=== PATIENT | male | born 1955 | race Caucasian/White ===

== ENCOUNTER 2018-06-06 22:55 | Inpatient (IN) | payer BC ==
[2018-06-06] MEDS ORDERED: SODIUM CHLORIDE 0.9% 1,000 ML IV STA ×2 (23:10→23:56)
--- NOTE | 2018-06-06 23:13 | ED ---
Neuro HPI - General Chief Complaint: Neuro Symptoms/Deficit Stated Complaint: memory problems Time Seen by Provider: 06/06/18 23:08 Source: patient, RN notes reviewed, old records reviewed Mode of arrival: ambulatory Limitations: no limitations - History of Present Illness Is the patient presenting with stroke symptoms?: Yes -: days(s) (3) Initial Comments: This is a 60-year-old male the ER for evaluation. Patient presents today for evaluation of difficulty finding words. The symptoms 2-3 days. Patient states is a medical history of high blood pressure also has medical history of prediabetes. No prior history of stroke or heart disease. No prior cardiac evaluation. No travel history or sick contacts, no headaches. Patient denies any neurological complaints for his numbness tingling weakness in extremities. No slurred speech. Patient has been having some confusion. Per son patient has had episodic confusion the last 2 days causing him to bring him into the emergency room tonight. Patient currently has no complaints. Location: dysarthria History of same: No Place: home Severity: mild Quality: weak Improves With: none Worsens With: none On Anticoagulants: No Context: gradual onset Associated Symptoms: confusion Treatments Prior to Arrival: none - Related Data Home Medications: Home Medications Medication Instructions Recorded Confirmed No Known Home Medications 06/06/18 06/06/18 Allergies/Adverse Reactions: Allergies Allergy/AdvReac Type Severity Reaction Status Date / Time No Known Allergies Allergy Verified 06/06/18 23:18 Review of Systems ROS Statement: Those systems with pertinent positive or pertinent negative responses have been documented in the HPI. ROS Other: All systems not noted in ROS Statement are negative. General Exam Limitations: no limitations General appearance: alert, in no apparent distress Head exam: Present: atraumatic, normocephalic, normal inspection Eye exam: Present: normal appearance, PERRL, EOMI. Absent: scleral icterus, conjunctival injection, periorbital swelling ENT exam: Present: normal exam, mucous membranes moist Neck exam: Present: normal inspection. Absent: tenderness, meningismus, lymphadenopathy Respiratory exam: Present: normal lung sounds bilaterally. Absent: respiratory distress, wheezes, rales, rhonchi, stridor Cardiovascular Exam: Present: regular rate, normal rhythm, normal heart sounds. Absent: systolic murmur, diastolic murmur, rubs, gallop, clicks GI/Abdominal exam: Present: soft, normal bowel sounds. Absent: distended, tenderness, guarding, rebound, rigid Extremities exam: Present: normal inspection, full ROM, normal capillary refill. Absent: tenderness, pedal edema, joint swelling, calf tenderness Back exam: Present: normal inspection Neurological exam: Present: alert, oriented X3, CN II-XII intact Psychiatric exam: Present: normal affect, normal mood Skin exam: Present: warm, dry, intact, normal color. Absent: rash Stroke MDM - Lab Data Result diagrams: 06/06/18 23:21 06/06/18 23:21 Lab Results 06/06/18 06/06/18 06/06/18 Range/Units 23:21 23:21 23:21 WBC 5.1 (3.8-10.6) k/uL RBC 5.29 (4.30-5.90) m/uL Hgb 14.7 (13.0-17.5) gm/dL Hct 45.8 (39.0-53.0) % MCV 86.6 (80.0-100.0) fL MCH 27.8 (25.0-35.0) pg MCHC 32.1 (31.0-37.0) g/dL RDW 14.7 (11.5-15.5) % Plt Count 183 (150-450) k/uL Neutrophils % 71 % Lymphocytes % 18 % Monocytes % 6 % Eosinophils % 3 % Basophils % 1 % Neutrophils # 3.6 (1.3-7.7) k/uL Lymphocytes # 0.9 L (1.0-4.8) k/uL Monocytes # 0.3 (0-1.0) k/uL Eosinophils # 0.2 (0-0.7) k/uL Basophils # 0.0 (0-0.2) k/uL PT 10.0 (9.0-12.0) sec INR 0.9 (<1.2) APTT 23.2 (22.0-30.0) sec Sodium 133 L (137-145) mmol/L Potassium 4.8 (3.5-5.1) mmol/L Chloride 97 L (98-107) mmol/L Carbon Dioxide 20 L (22-30) mmol/L Anion Gap 16 mmol/L BUN 28 H (9-20) mg/dL Creatinine 1.12 (0.66-1.25) mg/dL Est GFR (CKD-EPI)AfAm 81 (>60 ml/min/1.73 sqM) Est GFR (CKD-EPI)NonAf 70 (>60 ml/min/1.73 sqM) Glucose 634 H* (74-99) mg/dL Calcium 9.9 (8.4-10.2) mg/dL Total Bilirubin 0.7 (0.2-1.3) mg/dL AST 25 (17-59) U/L ALT 24 (21-72) U/L Alkaline Phosphatase 181 H (38-126) U/L Troponin I (0.000-0.034) ng/mL Total Protein 7.1 (6.3-8.2) g/dL Albumin 4.4 (3.5-5.0) g/dL Acetone, Qual (Negative) 06/06/18 06/06/18 Range/Units 23:21 23:21 WBC (3.8-10.6) k/uL RBC (4.30-5.90) m/uL Hgb (13.0-17.5) gm/dL Hct (39.0-53.0) % MCV (80.0-100.0) fL MCH (25.0-35.0) pg MCHC (31.0-37.0) g/dL RDW (11.5-15.5) % Plt Count (150-450) k/uL Neutrophils % % Lymphocytes % % Monocytes % % Eosinophils % % Basophils % % Neutrophils # (1.3-7.7) k/uL Lymphocytes # (1.0-4.8) k/uL Monocytes # (0-1.0) k/uL Eosinophils # (0-0.7) k/uL Basophils # (0-0.2) k/uL PT (9.0-12.0) sec INR (<1.2) APTT (22.0-30.0) sec Sodium (137-145) mmol/L Potassium (3.5-5.1) mmol/L Chloride (98-107) mmol/L Carbon Dioxide (22-30) mmol/L Anion Gap mmol/L BUN (9-20) mg/dL Creatinine (0.66-1.25) mg/dL Est GFR (CKD-EPI)AfAm (>60 ml/min/1.73 sqM) Est GFR (CKD-EPI)NonAf (>60 ml/min/1.73 sqM) Glucose (74-99) mg/dL Calcium (8.4-10.2) mg/dL Total Bilirubin (0.2-1.3) mg/dL AST (17-59) U/L ALT (21-72) U/L Alkaline Phosphatase (38-126) U/L Troponin I <0.012 (0.000-0.034) ng/mL Total Protein (6.3-8.2) g/dL Albumin (3.5-5.0) g/dL Acetone, Qual Positive (Negative) - NIH Stroke Scale 1a. Level of Consciousness: (0) alert 1b. LOC Questions: (0) answers correctly 1c. LOC Commands: (0) performs tasks correctly 2. Best Gaze: (0) normal 3. Visual: (0) no visual loss 4. Facial Palsy: (0) normal symmetrical movement 5a. Motor Arm Left: (0) no drift 5b. Motor Arm Right: (0) no drift 6a. Motor Leg Left: (0) no drift 6b. Motor Leg Right: (0) no drift 7. Limb Ataxia: (0) absent 8. Sensory: (0) normal 9. Best Language: (0) no aphasia 10. Dysarthria: (0) normal 11. Extinction/Inattention: (0) no abnormality - Thrombolytic Inclusion/Exclusion Thrombolytic Exclusion Criteria: Symptom Onset > 3 Hours - Medical Decision Making 62 male the ER for evaluation. Patient has some confusion. Also has evidence of DKA new-onset diabetes. Patient be admitted for DKA protocol - Radiology Data Radiology results: report reviewed (CT brain CTA had not is negative for acute disease), image reviewed - EKG Data -: EKG Interpreted by Me (EKG shows normal sinus rhythm rate of 74, NV 28, QRS 160, QTc 457) Past Medical History Past Medical History: Hypertension Additional Past Medical History / Comment(s): past hx. colon polyps History of Any Multi-Drug Resistant Organisms: None Reported Past Surgical History: Joint Replacement, Orthopedic Surgery Additional Past Surgical History / Comment(s): left cataract removed couple weeks ago, colonoscopies, left wrist ORIF Past Anesthesia/Blood Transfusion Reactions: No Reported Reaction Past Psychological History: No Psychological Hx Reported Smoking Status: Never smoker Past Alcohol Use History: None Reported Past Drug Use History: None Reported - Past Family History Sister(s) Family Medical History: Cancer Brother(s) Family Medical History: Cancer Course Vital Signs 06/06/18 22:58 Temperature 97.7 F Pulse Rate 84 Respiratory 18 Rate Blood Pressure 205/126 O2 Sat by Pulse 99 Oximetry - Reevaluation(s) Reevaluation #1: 06/07/18 01:06 Medical record is reviewed Reevaluation #2: 06/07/18 01:06 Patient's symptoms remain the same, during conversation no confusion or altered mental status, no expressive aphasia is noted - Consultations Consultation #1: Spoke with Dr. Renner was okay for admission Disposition Clinical Impression: DKA (diabetic ketoacidoses), Diabetes mellitus, new onset Disposition: ADMITTED IP TO THIS HOSP Condition: Fair Is patient prescribed a controlled substance at d/c from ED?: No Referrals: Kt Whitfield DO [Primary Care Provider] - 1-2 days
[2018-06-06 23:34] LABS: Basophils % (A) 1 %; Eosinophils # (A) 0.2 k/uL (0-0.7); Eosinophils % (A) 3 %; HCT 45.8 % (39.0-53.0); HGB 14.7 gm/dL (13.0-17.5); Lymphocytes # (A) 0.9 k/uL (1.0-4.8); Lymphocytes % (A) 18 %; MCH 27.8 pg (25.0-35.0); MCHC 32.1 g/dL (31.0-37.0); MCV 86.6 fL (80.0-100.0); Mean Platelet Volume 8.8; Monocytes # (A) 0.3 k/uL (0-1.0); Monocytes % (A) 6 %; Neutrophils # (A) 3.6 k/uL (1.3-7.7); Neutrophils % (A) 71 %; Platelet Count 183 k/uL (150-450); RBC 5.29 m/uL (4.30-5.90); RDW 14.7 % (11.5-15.5); WBC 5.1 k/uL (3.8-10.6)
[2018-06-06 23:43] LABS: Albumin 4.4 g/dL (3.5-5.0); Calcium 9.9 mg/dL (8.4-10.2); Potassium 4.8 mmol/L (3.5-5.1); Total Bilirubin 0.7 mg/dL (0.2-1.3); Total Protein 7.1 g/dL (6.3-8.2)
[2018-06-06 23:51] LABS: INR 0.9 (<1.2); Partial Thromboplastin Time 23.2 sec (22.0-30.0)
[2018-06-06] MEDS ORDERED: INSULIN REGULAR 100 UNIT/ML VIAL IV ONE (23:56)
[2018-06-06] MEDS ORDERED: SODIUM CHLORIDE 0.9% 500 ML 500 ML IV STA (23:56)
--- NOTE | 2018-06-07 00:09 | CT ---
EXAM: CT Head Without Intravenous Contrast CLINICAL HISTORY: ITS.REASON CT Reason: Neuro Deficits TECHNIQUE: Axial computed tomography images of the head/brain without intravenous contrast. This CT exam was performed using one or more of the following dose reduction techniques: automated exposure control, adjustment of the mA and/or kV according to patient size, and/or use of iterative reconstruction technique. COMPARISON: No relevant prior studies available. FINDINGS: There is hyperdensity throughout the left basal ganglia and a prominent heterogeneous rounded hyperdensity in the left periventricular white matter. There is no edema. There is ex vacuo dilatation of the left lateral ventricle. There is no midline shift. There is no acute infarction. There is no hydrocephalus. There is no acute hemorrhage. No fluid levels in the sinuses. IMPRESSION: Atypical findings in the left basal ganglia and adjacent white matter, with no edema or mass effect, and dilatation of the ipsilateral lateral ventricle, indicating a chronic process with volume loss. 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 No acute infarction or hemorrhage. <MYCVCSECTION> Critical Value Communications 06/07/18 00:21 Verify Receipt Verified receipt with JEEVAN MENDIETA in the ER for Dr. WEST on 06/07 00:20 (-05:00)
--- NOTE | 2018-06-07 00:16 | CT ---
EXAM: CT Angiography Head Without And With Intravenous Contrast CLINICAL HISTORY: ITS.REASON CT Reason: Neuro Deficits TECHNIQUE: Axial computed tomographic angiography images of the head without and with intravenous contrast using CT angiography protocol. This CT exam was performed using one or more of the following dose reduction techniques: automated exposure control, adjustment of the mA and/or kV according to patient size, and/or use of iterative reconstruction technique. 3D reconstructed images were created and reviewed. COMPARISON: No relevant prior studies available. FINDINGS: VASCULATURE: Right internal carotid artery: No suspicious findings. Intracranial segment is patent with no significant stenosis. No aneurysm. Right anterior cerebral artery: Unremarkable. No occlusion or significant stenosis. No aneurysm. Right middle cerebral artery: Unremarkable. No occlusion or significant stenosis. No aneurysm. Right posterior cerebral artery: Unremarkable. No occlusion or significant stenosis. No aneurysm. Right vertebral artery: Unremarkable as visualized. Left internal carotid artery: No suspicious findings. Intracranial segment is patent with no significant stenosis. No aneurysm. Left anterior cerebral artery: Unremarkable. No occlusion or significant stenosis. No aneurysm. Left middle cerebral artery: Unremarkable. No occlusion or significant stenosis. No aneurysm. Left posterior cerebral artery: Unremarkable. No occlusion or significant stenosis. No aneurysm. Left vertebral artery: Unremarkable as visualized. Basilar artery: Unremarkable. No occlusion or significant stenosis. No aneurysm. HEAD: Brain: Left frontal developmental venous anomaly passes into the left periventricular lesion previously discussed. No hemorrhage. Ventricles: Unremarkable. No ventriculomegaly. Bones/joints: No acute fracture. Soft tissues: Unremarkable. Sinuses: Unremarkable as visualized. No acute sinusitis. Mastoid air cells: Unremarkable as visualized. No mastoid effusion. IMPRESSION: No acute findings. EXAM: CT Angiography Neck Without And With Intravenous Contrast CLINICAL HISTORY: ITS.REASON CT Reason: Neuro Deficits TECHNIQUE: Axial computed tomographic angiography images of the neck without and with intravenous contrast using CT angiography protocol. This CT exam was performed using one or more of the following dose reduction techniques: automated exposure control, adjustment of the mA and/or kV according to patient size, and/or use of iterative reconstruction technique. MIP reconstructed images were created and reviewed. COMPARISON: No relevant prior studies available. FINDINGS: VASCULATURE: Right common carotid artery: Unremarkable. No significant stenosis. No dissection or occlusion. Right internal carotid artery: Unremarkable. Extracranial segment is patent with no significant stenosis. No dissection or occlusion. Right external carotid artery: Unremarkable. No occlusion. Right vertebral artery: Unremarkable. No significant stenosis. No dissection or occlusion. Left common carotid artery: Unremarkable. No significant stenosis. No dissection or occlusion. Left internal carotid artery: Unremarkable. Extracranial segment is patent with no significant stenosis. No dissection or occlusion. Left external carotid artery: Unremarkable. No occlusion. Left vertebral artery: Unremarkable. No significant stenosis. No dissection or occlusion. NECK: Bones/joints: No acute fracture. No dislocation. Soft tissues: Unremarkable as visualized. No mass. CAROTID STENOSIS REFERENCE USING NASCET CRITERIA: % ICA stenosis = (1 - narrowest ICA diameter/diameter of distal cervical ICA) x 100. Mild - <50% stenosis. Moderate - 50-69% stenosis. Severe - 70-94% stenosis. Near occlusion - 95-99% stenosis. Occluded - 100% stenosis. IMPRESSION: Normal neck CTA. <MYCVCSECTION> Critical Value Communications 06/07/18 00:21 Verify Receipt Verified receipt with JEEVAN MENDIETA in the ER for Dr. WEST on 06/07 00:20 (-05:00)
--- NOTE | 2018-06-07 00:32 | XR ---
EXAM: XR Chest, 2 Views CLINICAL HISTORY: ITS.REASON XR Reason: altered mental status TECHNIQUE: Frontal and lateral views of the chest. COMPARISON: No relevant prior studies available. FINDINGS: Lungs: Unremarkable. No consolidation. Pleural space: Unremarkable. No pneumothorax. Heart: Unremarkable. No cardiomegaly. Mediastinum: Unremarkable. Bones/joints: No acute fracture. IMPRESSION: No acute findings.
[2018-06-07] MEDS ORDERED: LABETALOL SYRINGE 5 MG/ML IVP STA (00:56)
[2018-06-07] MEDS ORDERED: Potassium Replacement Protocol 1 EACH MISC MISCELLANE PRN (01:01)
[2018-06-07] MEDS ORDERED: ASPIRIN 325 MG TAB PO STA (01:01)
[2018-06-07] MEDS ORDERED: Magnesium Replacement Protocol 1 EACH MISC MISCELLANE PRN (01:01)
[2018-06-07] MEDS ORDERED: INSULIN REGULAR 100 UNIT in SODIUM CHLORIDE 0.9% 100 ML IV SCH (01:15)
[2018-06-07 01:38] LABS: Glucose,Whole Blood 405 mg/dL (75-99)
[2018-06-07] MEDS: SODIUM CHLORIDE 0.9% 1,000 ML IV SCH ×2 (01:50→06:37)
[2018-06-07 02:24] LABS: Glucose,Whole Blood 361 mg/dL (75-99)
[2018-06-07 03:14] LABS: Glucose,Whole Blood 346 mg/dL (75-99)
[2018-06-07] MEDS: D5-0.45% NACL WITH KCL 20MEQ/L 1,000 ML IV SCH ×3 (04:10→15:40)
[2018-06-07 04:15] LABS: Glucose,Whole Blood 281 mg/dL (75-99)
[2018-06-07 04:45] LABS: Anion Gap 9 mmol/L; Blood Urea Nitrogen 23 mg/dL (9-20); Carbon Dioxide 22 mmol/L (22-30); Chloride 106 mmol/L (98-107); Glucose 270 mg/dL (74-99); Potassium 3.9 mmol/L (3.5-5.1); Sodium 137 mmol/L (137-145)
[2018-06-07 05:06] LABS: Glucose,Whole Blood 270 mg/dL (75-99)
[2018-06-07 05:49] LABS: Appearance,Urine Clear (Clear); Bilirubin,Urine Negative (Negative); Blood,Urine Negative (Negative); Color,Urine Yellow; Glucose,Urine (UA) 4+ (Negative); Leukocyte Esterase,Urine Negative (Negative); Nitrite,Urine Negative (Negative); Protein,Urine Negative (Negative); Specific Gravity,Urine 1.042 (1.001-1.035); Urobilinogen,Urine <2.0 mg/dL (<2.0)
[2018-06-07 05:58] LABS: Glucose,Whole Blood 226 mg/dL (75-99)
[2018-06-07 06:21] VITALS: BMI 37.0
[2018-06-07 06:59] LABS: Ketones,Urine 2+ (Negative)
[2018-06-07 07:33] LABS: Glucose,Whole Blood 178 mg/dL (75-99)
[2018-06-07 08:13] LABS: Glucose,Whole Blood 172 mg/dL (75-99)
[2018-06-07 09:03] LABS: Glucose,Whole Blood 128 mg/dL (75-99)
[2018-06-07 10:06] LABS: Glucose,Whole Blood 134 mg/dL (75-99)
[2018-06-07 10:10] LABS: Anion Gap 6 mmol/L; Blood Urea Nitrogen 18 mg/dL (9-20); Carbon Dioxide 25 mmol/L (22-30); Chloride 109 mmol/L (98-107); Glucose 120 mg/dL (74-99); Potassium 3.8 mmol/L (3.5-5.1); Sodium 140 mmol/L (137-145)
[2018-06-07 10:59] LABS: Glucose,Whole Blood 134 mg/dL (75-99)
[2018-06-07 12:38] LABS: Glucose,Whole Blood 139 mg/dL (75-99)
[2018-06-07] MEDS ORDERED: INSULIN NPH 300 UNIT/3 ML VIAL SQ SCH (12:45)
[2018-06-07 13:08] LABS: Glucose,Whole Blood 137 mg/dL (75-99)
[2018-06-07] MEDS: ASPIRIN 81 MG PO SCH (14:28)
[2018-06-07] MEDS: LISINOPRIL-HCTZ 10-12.5 MG 1 EACH TAB PO SCH ×2 (14:28→20:24)
[2018-06-07] MEDS: ENOXAPARIN 40 MG/0.4 ML SYRINGE SQ SCH (14:28)
[2018-06-07 16:50] LABS: Glucose,Whole Blood 141 mg/dL (75-99)
--- NOTE | 2018-06-07 17:14 | HP ---
HISTORY AND PHYSICAL DATE OF ADMISSION: 06/07/2018 DATE OF SERVICE: 06/07/2018 PRESENTING COMPLAINT: Weak and tired. HISTORY OF PRESENTING COMPLAINT: This is a very pleasant 62-year-old patient of Dr. Whitfield. He really does not take any medication. He is supposed to have hypertension, not taking medications. For about 2 weeks he has been feeling increasingly weak and tired, thirsty, polyuric, dry mouth to the point he was having trouble talking. He decided to finally come into the hospital. Patient was found to have a glucose of 634, and serum acetone was positive. The patient was put on IV insulin drip and admitted to the ICU for protocol. Patient denies any neuropathy symptoms or any vision symptoms. Sugars are doing better with the insulin drip in the ICU. The patient also was for 2 days having trouble speaking on 2 occasions. He felt it was more from his dry mouth. CT angio of the neck was normal. CT scan of the brain did not report any acute infarction or hemorrhage. REVIEW OF SYSTEMS: CONSTITUTIONAL: Weak, tired. HEENT: None. RESPIRATORY: None. CARDIOVASCULAR: None. GASTROINTESTINAL: None. GENITOURINARY: Polyuria. DERMATOLOGICAL: None. HEMATOLOGICAL: None. LYMPHATICS: None. PSYCHIATRY: None. NEUROLOGICAL: Temporary findings as above. PAST MEDICAL HISTORY: 1. Hypertension; not taking medications. 2. Colon polyps. PAST SURGICAL HISTORY: 1. Left cataract removed. 2. Left wrist ORIF. SOCIAL HISTORY: Does not smoke. No alcohol. Lives with his son and [id number]. 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 PHYSICAL EXAMINATION: VITAL SIGNS ON PRESENTATION: Temperature 97.7, pulse 84, respiration 18, blood pressure 205/126, repeat 155/119, pulse ox 99% on room air. GENERAL APPEARANCE: Well built; BMI 37.1. Lying in bed, awake. EYES: Pupils equal. Conjunctivae normal. HEENT: External appearance of nose and ears normal. Oral cavity normal. NECK: JVD not raised. Mass not palpable. RESPIRATORY: Effort normal. Lungs are clear. CARDIOVASCULAR: First and second sounds normal. No edema. ABDOMEN: Soft, non-tender. Liver and spleen not palpable. LYMPHATIC: No lymph node palpable in neck or axillae. PSYCHIATRY: Alert and oriented x3. Mood and affect normal. NEUROLOGICAL: Pupils equal. Cranial nerves grossly intact. Power and sensation grossly intact. INVESTIGATIONS: White count 5.1, potassium 4.8, BUN 28, creatinine 1.12. Initial blood glucose was 634. Serum acetone was positive. EKG tracing, personally reviewed by me, shows normal sinus rhythm. CT scan of the brain and CT angio as above. ASSESSMENT: 1. New-onset acute diabetic ketoacidosis. 2. Obesity; body mass index 37.1. 3. Essential hypertension, accelerated. 4. Primary osteoarthritis. 5. Dehydration with BUN up to 28. PLAN: Patient was put on insulin drip, to which patient responded. Sugars have been coming down. This afternoon I ordered 14 units of NPH and also will start the patient on Levemir 26 units at night and 8 units before meals t.i.d. Will check a lipid panel in the morning. Patient has no focal findings for neurology, but will get an MRI of the brain with and without contrast. The patient was also put on a baby aspirin. Will start the patient also on Lipitor. For blood pressure will start the patient on Zestoretic 10/12.5 b.i.d. Care was discussed with the patient. Questions were answered. MMODL / IJN: [id number] /
[2018-06-07] MEDS: INSULIN ASPART (NovoLOG) 100 UNIT/ML VIAL SQ SCH ×3 (17:23→20:24)
--- NOTE | 2018-06-07 18:57 | MR ---
EXAMINATION TYPE: MR brain wo/w con DATE OF EXAM: 06/07/2018 COMPARISON: CT brain 06/06/2018 HISTORY: Weakness TECHNIQUE: Multiplanar, multisequence images of the brain and brainstem is performed without and with IV contras t, utilizing 14 mL intravenous Gadavist . FINDINGS: There is a 4 x 3 cm area of mixed signal involving the white matter left posterior frontal lobe. This has very low signal on the T2 images consistent with hemosiderin and old hemorrhage. There is a nodular enhancing central focus that measures 16 x 13 mm and consistent with a vascular malform ation. There is no significant mass effect. There is no midline shift. There is no adjacent white mat ter edema. There is increased signal in the white matter left insula lobe also involving the caudate nucleus on the left side and left internal capsule. This appears to enhance and consistent with large area of va scular malformation. The brain stem is intact. There is thinning of the corpus callosum. Sella turcica appears normal. The re is minimal cerebral atrophy. Calvarium is intact. There is no evidence of orbital mass. There is n ormal contrast opacification of the venous sinuses. Impression Hemosiderin in the left frontal lobe consistent with old hemorrhage. Intra-axial enhancement of the l eft frontal, insula, left caudate nucleus, left internal capsule consistent with vascular malformati on. No adjacent edema seen. No mass effect. No change compared to yesterday. No evidence of cortical infarct.
--- NOTE | 2018-06-07 19:09 | ECHOF ---
Referral Reason:Thrombus MEASUREMENTS -------- HEIGHT: 190.5 cm WEIGHT: 134.3 kg BP: 144/97 RVIDd: 3.2 cm (< 3.3) IVSd: 1.4 cm (0.6 - 1.1) LVIDd: 4.6 cm (3.9 - 5.3) LVPWd: 1.4 cm (0.6 - 1.1) IVSs: 1.5 cm LVIDs: 3.4 cm LVPWs: 1.5 cm LAESV Index (A-L): 18.12 ml/m Ao Diam: 4.1 cm (2.0 - 3.7) AV Cusp: 2.2 cm (1.5 - 2.6) LA Diam: 3.0 cm (2.7 - 3.8) MV E You: 0.56 m/s MV DecT: 381 ms MV A You: 0.76 m/s MV E/A Ratio: 0.74 RAP: 5.00 mmHg RVSP: 18.74 mmHg FINDINGS -------- Sinus rhythm. This was a technically difficult study with suboptimal views. The left ventricular size is normal. There is moderate concentric left ventricular hypertrophy. O verall left ventricular systolic function is low-normal with, an EF between 50 - 55 %. The right ventricle is normal in size and function. Normal LA size by volume 22+/-6 ml/m2. The right atrium was not well visualized. 5 ml of Lumason was utilized for enhancement of images. Aortic valve is trileaflet and is mildly thickened. There is no evidence of aortic regurgitation. There is no evidence of aortic stenosis. The mitral valve leaflets are mildly thickened. There is trace to mild mitral regurgitation. Trace tricuspid regurgitation present. Right ventricular systolic pressure is normal at < 35 mmHg. There is no evidence of pulmonary hypertension. The pulmonic valve was not well visualized. The aortic root is mildy dilated up to 3.9 cm. IVC Not well visulized. There is no pericardial effusion. CONCLUSIONS -------- 1. Sinus rhythm. 2. This was a technically difficult study with suboptimal views. 3. The left ventricular size is normal. 4. There is moderate concentric left ventricular hypertrophy. 5. Overall left ventricular systolic function is low-normal with, an EF between 50 - 55 %. 6. Normal LA size by volume 22+/-6 ml/m2. 7. The right atrium was not well visualized. 8. 5 ml of Lumason was utilized for enhancement of images. 9. Aortic valve is trileaflet and is mildly thickened. 10. The mitral valve leaflets are mildly thickened. 11. There is trace to mild mitral regurgitation. 12. Trace tricuspid regurgitation present. 13. Right ventricular systolic pressure is normal at < 35 mmHg. 14. There is no evidence of pulmonary hypertension. 15. The pulmonic valve was not well visualized. 16. The aortic root is mildy dilated up to 3.9 cm. 17. IVC Not well visulized. 18. There is no pericardial effusion. COPPER MINER: Julio Medina RDCS
[2018-06-07 19:43] LABS: Hemoglobin A1C 16.4 % (4.0-6.0)
[2018-06-07 20:24] LABS: Glucose,Whole Blood 262 mg/dL (75-99)
[2018-06-07] MEDS: INSULIN DETEMIR (LEVEMIR) 100 UNIT/ML SYR SQ SCH (20:24)
[2018-06-08] MEDS ORDERED: ASPIRIN 325 MG TAB PO SCH (01:03)
[2018-06-08 01:13] LABS: Cholesterol 317 mg/dL (<200); HDL Cholesterol 40 mg/dL (40-60); Triglycerides 495 mg/dL (<150)
[2018-06-08 06:02] LABS: Glucose,Whole Blood 188 mg/dL (75-99)
[2018-06-08] MEDS: INSULIN ASPART (NovoLOG) 100 UNIT/ML VIAL SQ SCH ×6 (07:17→17:38)
[2018-06-08] MEDS ORDERED: ATORVASTATIN 20 MG TAB PO SCH (09:00)
[2018-06-08] MEDS: ASPIRIN 81 MG PO SCH (09:24)
[2018-06-08] MEDS: LISINOPRIL-HCTZ 10-12.5 MG 1 EACH TAB PO SCH ×2 (09:26→12:22)
[2018-06-08] MEDS: ENOXAPARIN 40 MG/0.4 ML SYRINGE SQ SCH (09:27)
[2018-06-08 09:33] VITALS: RESP 17
[2018-06-08 11:49] LABS: Glucose,Whole Blood 215 mg/dL (75-99)
[2018-06-08 16:29] LABS: Glucose,Whole Blood 271 mg/dL (75-99)
[2018-06-08 18:32] VITALS: BP 134/91; PULSE 82; TEMP 97.1
[2018-06-08] MEDS: INSULIN DETEMIR (LEVEMIR) 100 UNIT/ML SYR SQ SCH (19:01)
--- NOTE | 2018-06-08 23:54 | DS ---
DISCHARGE SUMMARY DATE OF ADMISSION: June 07, 2018. DATE OF DISCHARGE: June 08, 2018. FINAL DIAGNOSES: 1. New onset acute diabetic ketoacidosis. 2. Obesity BMI 37.1. 3. Essential hypertension. 4. Gastroesophageal reflux disease. 5. Primary osteoarthritis. 6. Dehydration. HOSPITAL COURSE: This patient really does not take much medications, not feeling well for last 2 weeks, presented with diabetic ketoacidosis. The patient had some trouble speaking 2 days prior to coming in. It was felt more to be from patient being dehydrated and dry mouth. The patient did have a MRI of the brain that did not show any acute event. Also had a CT angio of including the neck there was no stenosis. Care was discussed with the patient. Questions were answered. The patient was seen by dietitian. PHYSICAL EXAMINATION: VITAL SIGNS: Temperature 97.1, pulse 72, respirations 17, blood pressure 134/91, pulse ox 94 percent on room air. LUNGS: Lungs are clear. INVESTIGATIONS: Hemoglobin A1c 16.4. DISCHARGE MEDICATIONS: 1. Aspirin 81 mg a day. 2. Lipitor 20 mg a day. 3. NovoLog 10 units subcu a.c. t.i.d. 4. Levemir 32 units subcu q.h.s. 5. Zestoretic 01/18.5 one tab p.o. b.i.d. FOLLOWUP: Follow up with Dr. Whitfield in 3 days. On exam, lungs are clear. Cardiovascular: 1st and 2nd sounds normal. Accu-Cheks the patient to keep a log. Discussed with the patient. Copy to Dr. Whitfield. MMKELLYL / IJN: [id number] /
== END 2018-06-08 19:09 | disposition home or self-care (01) | DRG 639 ==
LOC: EC 22:55 → 3SCARD 06-07 01:07 → 2SICU 06-07 04:57 → 3SCARD 06-07 22:44
PROVIDERS: ADMIT Hospitalist; ATTEND Hospitalist
DX: E11.10 Type 2 diabetes mellitus with ketoacidosis without coma (principal); I10 Essential (primary) hypertension; E86.0 Dehydration; M19.91 Primary osteoarthritis, unspecified site; K21.9 Gastro-esophageal reflux disease without esophagitis; E66.9 Obesity, unspecified; Z68.37 Body mass index [BMI] 37.0-37.9, adult; Z86.010 Personal history of colon polyps; Z98.42 Cataract extraction status, left eye; Z79.82 Long term (current) use of aspirin; Z79.4 Long term (current) use of insulin; Z79.899 Other long term (current) drug therapy
CPT/HCPCS: 36415; 70450; 70496; 70498; 70553; 71046; 80051; 80053; 80061; 81003; 82009; 82565; 82947; 83036; 84100; 84484; 84520; 85025; 85610; 85730; 87086; 93005; 93306; 94760; 96361; 96374; 99285

== ENCOUNTER → 2019-09-12 | Outpatient (CLI) | payer BC | END | disposition home or self-care (01) | LOC: LABWHC1 09:32 | PROVIDERS: ATTEND Internal Medicine Gastroenterology | DX: Z11.59 Encounter for screening for other viral diseases (principal) ==

== ENCOUNTER 2019-09-17 09:45 | Day surgery (SDC) | payer BC ==
[2019-09-15 13:19] VITALS: BMI 33.5
[~2019-09-17 09:45] MED LIST: LACTATED RINGERS 1,000 ML IV SCH
[2019-09-17 10:16] VITALS: RESP 16; TEMP 97
[2019-09-17] MEDS ORDERED: LIDOCAINE 1% (10MG/ML) FOR IV START INTRADERMA ONE (10:20)
[2019-09-17] MEDS ORDERED: PROPOFOL 10 MG/ML 20 ML VIAL IV ONE (10:55)
[2019-09-17] MEDS ORDERED: LIDOCAINE 1% INJ 10MG/ML (20 ML MDV) ONE (10:55)
--- NOTE | 2019-09-17 11:15 | P.PCN ---
Date of Procedure: 09/17/19 Procedure(s) Performed: BRIEF HISTORY: Patient is a 64-year-old [id number] scheduled for an elective colonoscopy as a part of screening for colon cancer and family history of colon cancer. His father was diagnosed with colon cancer at age 60 PROCEDURE PERFORMED: Colonoscopy. PREOPERATIVE DIAGNOSIS: Screening for colon cancer/family history of colon cancer. IV sedation per Anesthesia. PROCEDURE: After informed consent was obtained, the patient, was brought into the endoscopy unit. IV sedation was administered by Anesthesia under continuous monitoring. Digital rectal examination was normal. Initially the Olympus CF-160 flexible video colonoscope was then inserted in the rectum, gradually advanced into the cecum without any difficulty. Careful examination was performed as the scope was gradually being withdrawn. Ileocecal valve and the appendiceal orifice were visualized and appeared normal. Prep was excellent. Mucosa of the cecum, ascending colon, transverse colon, descending colon, sigmoid colon, and rectum appeared normal. The proximal rectum there was a 3 mm polyp that was removed by cold biopsy Retroflexion was performed in the rectum and no lesions were seen. The patient tolerated the procedure well. IMPRESSION: 3 mm proximal rectal polyp status post removal by cold biopsy Rest of the colon appeared normal RECOMMENDATIONS: Findings of this examination were discussed with the patient well as his family. He was advised to follow with the biopsy results. He was advised to have a repeat screening colonoscopy in 5 years because of the family history of colon cancer.
[2019-09-17 11:54] VITALS: BP 122/70; PULSE 52
== END 2019-09-17 11:58 | disposition home or self-care (01) ==
LOC: ORWHC2ENDO 09:45
PROVIDERS: ATTEND Internal Medicine Gastroenterology
DX: Z12.11 Encounter for screening for malignant neoplasm of colon (principal); K62.1 Rectal polyp; I10 Essential (primary) hypertension; E78.5 Hyperlipidemia, unspecified; E11.9 Type 2 diabetes mellitus without complications; Z79.899 Other long term (current) drug therapy; Z80.0 Family history of malignant neoplasm of digestive organs
CPT/HCPCS: 88305; 45380; J2001; J2704

== ENCOUNTER 2019-10-16 07:20 | Emergency (ER) | payer BC, OTHER ==
[2019-10-16] MEDS ORDERED: LISINOPRIL 20 MG TAB PO STA (08:02)
--- NOTE | 2019-10-16 08:03 | ED ---
General Adult HPI - General Chief complaint: Fall Stated complaint: [facility]-Fall Time Seen by Provider: 10/16/19 07:20 Source: patient, EMS, RN notes reviewed, old records reviewed Mode of arrival: EMS Limitations: no limitations - History of Present Illness Initial comments: This is a 64-year-old male who presents emergency Department complaining that he fell back and hit his head on the floor. Patient states he did not lose consciousness. Patient states he has slight headache. Patient denies any neck pain. Patient denies any numbness weakness. Patient states she was up and ambulatory after the incident. Patient denies any blood thinners. Patient denies any other injury. Patient denies any back pain or chest pain. Patient denies any abdominal pain. Patient denies any extremity pain. - Related Data Home Medications Medication Instructions Recorded Confirmed Atorvastatin [Lipitor] 10 mg PO HS 09/16/19 10/16/19 Lisinopril 20 mg PO BID 09/16/19 10/16/19 Metoprolol Succinate (ER) [Toprol 50 mg PO DAILY 09/17/19 10/16/19 XL] metFORMIN HCL [metFORMIN HCL ER 1,000 mg PO W/SUPPER 10/16/19 10/16/19 Osmotic] Allergies Allergy/AdvReac Type Severity Reaction Status Date / Time No Known Allergies Allergy Verified 10/16/19 08:04 Review of Systems ROS Statement: Those systems with pertinent positive or pertinent negative responses have been documented in the HPI. ROS Other: All systems not noted in ROS Statement are negative. Past Medical History Past Medical History: Hypertension Additional Past Medical History / Comment(s): past hx. colon polyps, L wrist ORIF, L TKA, L cararact removed History of Any Multi-Drug Resistant Organisms: None Reported Past Surgical History: Joint Replacement, Orthopedic Surgery Additional Past Surgical History / Comment(s): left cataract removed couple weeks ago, colonoscopies, left wrist ORIF Past Anesthesia/Blood Transfusion Reactions: No Reported Reaction Past Psychological History: No Psychological Hx Reported Smoking Status: Never smoker Past Alcohol Use History: None Reported Past Drug Use History: None Reported - Past Family History Father Family Medical History: Cancer Sister(s) Family Medical History: Cancer Brother(s) Family Medical History: Cancer General Exam - General Exam Comments Initial Comments: GENERAL: Patient is well-developed and well-nourished. Patient is nontoxic and well- hydrated and is in mild distress. There is an occipital hematoma. Had an abrasion on the scalp. ENT: Neck is soft and supple. No significant lymphadenopathy is noted. Oropharynx is clear. Moist mucous membranes. Neck has full range of motion without eliciting any pain. EYES: The sclera were anicteric and conjunctiva were pink and moist. Extraocular movements were intact and pupils were equal round and reactive to light. Eyelids were unremarkable. PULMONARY: Unlabored respirations. Good breath sounds bilaterally. No audible rales rhonchi or wheezing was noted. CARDIOVASCULAR: There is a regular rate and rhythm without any murmurs gallops or rubs. ABDOMEN: Soft and nontender with normal bowel sounds. SKIN: Skin is clear with no lesions or rashes and otherwise unremarkable. NEUROLOGIC: Patient is alert and oriented x3. Cranial nerves II through XII are grossly intact. Motor and sensory are also intact. Normal speech, volume and content. Symmetrical smile. MUSCULOSKELETAL: Normal extremities with adequate strength and full range of motion. LYMPHATICS: No significant lymphadenopathy is noted PSYCHIATRIC: Normal psychiatric evaluation. Limitations: no limitations Course Vital Signs 10/16/19 07:25 Temperature 98.4 F Pulse Rate 78 Respiratory 20 Rate Blood Pressure 197/121 O2 Sat by Pulse 97 Oximetry Medical Decision Making - Medical Decision Making Patient's CT of the brain and C-spine showed no acute abnormality. Patient's lip was swollen on the right upper lip. Patient stated that he thinks he bit his lip when he fell. I told the patient but doesn't subside he could be due to his lisinopril and he needed to follow up with his primary medical care doctor. Disposition Clinical Impression: Fall, Scalp hematoma Disposition: HOME SELF-CARE Condition: Good Instructions (If sedation given, give patient instructions): Fall Prevention for Older Adults (ED), Hematoma (ED), Head Injury (ED) Additional Instructions: Patient is to return for any altered mental status headache nausea or vomiting. Is patient prescribed a controlled substance at d/c from ED?: No Referrals: Kt Whitfield DO [Primary Care Provider] - 1-2 days Time of Disposition: 08:26
[2019-10-16] MEDS ORDERED: METOPROLOL SUCCINATE (ER) 50 MG TAB.ER.24H PO STA (08:06)
--- NOTE | 2019-10-16 08:20 | CT ---
EXAMINATION TYPE: CT brain rohit wo con DATE OF EXAM: 10/16/2019 COMPARISON: June 06, 2018 HISTORY: Fall from standing CT DLP: 1497.[address] of the brain was performed. The ventricles, basal cisterns and sulci overlying the cerebral convexities demonstrate mild to moder ate enlargement. 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 No acute intracranial he morrhage is identified at this time. There is no evidence for intracranial hemorrhage or sulcal effacement. There is decreased attenuatio n about the periventricular white matter and deep white matter of both cerebral hemispheres, compatib le with chronic small vessel ischemia. No mass effects are seen. If symptoms persist consider MRI. Osseous calvarium is intact. Posterior scalp hematoma noted. IMPRESSION: 1. Age related atrophic and chronic small vessel ischemic change without acute intracranial process seen at this time. CT Cervical Spine: Unenhanced CT of the cervical spine was performed with bone and soft tissue window settings submitted . Coronal and sagittal reconstruction is obtained. There is normal alignment and prevertebral soft tissues. No evidence for acute cervical fracture . Scattered degenerative disc disease and spondylosis. Biapical scarring. IMPRESSION: 1. No evidence for acute fracture or subluxation of the cervical spine.
[2019-10-16] MEDS ORDERED: ENALAPRILAT 1.25 MG/ML 1 ML VIAL IVP STA (09:14)
[2019-10-17 09:54] VITALS: BP 158/102; PULSE 67; RESP 20; TEMP 98.4
== END 2019-10-16 09:43 | disposition home or self-care (01) ==
LOC: EC 07:20
DX: S00.03XA Contusion of scalp, initial encounter (principal); I10 Essential (primary) hypertension; Z79.899 Other long term (current) drug therapy; Z98.42 Cataract extraction status, left eye; Z89.612 Acquired absence of left leg above knee; W01.198A Fall on same level from slipping, tripping and stumbling with subsequent striking against other object, initial encounter; Y93.H9 Activity, other involving exterior property and land maintenance, building and construction; Y92.213 High school as the place of occurrence of the external cause; Y99.0 Civilian activity done for income or pay
CPT/HCPCS: 70450; 72125; 96374; 99284

== ENCOUNTER 2021-02-23 13:15 | Inpatient (IN) | payer BC, MEDICARE ==
[2021-02-23] MEDS ORDERED: HEPARIN SODIUM 1,000 UN/ML (10ML VL) IV ONE (13:42)
[2021-02-23] MEDS ORDERED: HEPARIN SODIUM 1,000 UN/ML (10ML VL) IV PRN (13:42)
[2021-02-23] MEDS ORDERED: DEXAMETHASONE SOD PHOSPHATE 10 MG/ML 1 ML VIAL IV STA (13:45)
--- NOTE | 2021-02-23 13:59 | ED ---
General Adult HPI - General Chief complaint: Shortness of Breath Stated complaint: Abn CT Time Seen by Provider: 02/23/21 13:40 Source: patient Mode of arrival: wheelchair Limitations: no limitations - History of Present Illness Initial comments: Dictation was produced using [employer] dictation software. please excuse any grammatical, word or spelling errors. Chief Complaint: 65-year-old male symptomatic of coronavirus for the last [address]. History of Present Illness: 65-year-old male he has had symptoms of covered since Sunday. He saw his primary care doctor. He was tested yesterday and found that he was positive. 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 He had a CT angiogram ordered by his primary care doctor. CT angioma showed diffuse bilateral infiltrates. Radiologist report says that cannot rule out peripheral emboli. Patient denies any chest pain. He does feel like his shortness of b reath is getting worse. Other incidental finding seen on his CT shows hiatal hernia and aortic aneurysm at the root measuring 4.1 cm. Patient denies getting the vaccine. The ROS documented in this emergency department record has been reviewed and confirmed by me. Those systems with pertinent positive or negative responses have been documented in the HPI. All other systems are other negative and/or noncontributory. PHYSICAL EXAM: General Impression: Alert and oriented x3, not in acute distress HEENT: Normocephalic atraumatic, extra-ocular movements intact, pupils equal and reactive to light bilaterally, mucous membranes moist. Cardiovascular: Heart regular rate and rhythm Chest: Able to complete full sentences, no retractions, no tachypnea Abdomen: abdomen soft, non-tender, non-distended, no organomegaly Musculoskeletal: Pulses present and equal in all extremities, no peripheral e shahid Motor: no focal deficits noted Neurological: CN II-XII grossly intact, no focal motor or sensory deficits noted Skin: Intact with no visualized rashes Psych: Normal affect and mood ED course: 65-year-old male presents to the emergency department for abnormal CT. He is tested positive for coronavirus yesterday. He has been symptomatic for 5 days. Vital signs upon arrival shows findings within acceptable limits. Patient's oxygen level was 93% on room air at rest. Ambulatory pulse ox shows measurement of 88%. Laboratory evaluation obtained. CBC Brayan. Coag panel is negative. Metabolic panel is within acceptable limits. Mildly hyponatremic at 131. CRP 19.5 with a d-dimer 0.96. Patient be admitted for coronavirus. Pulmonology on consult. Case discussed with Dr. Renner who is willing to accept patients care. Dr. Renner request d-dimer and CRP levels. Pulmonology consult it. Patient given Decadron. EKG interpretation: Ventricular rate 75, sinus rhythm, UT interval 218, QRS 106, QTC 442. No UT prolongation, no QTC prolongation, no ST or T-wave changes noted. EKG compared to. June 06 2018 showing no changes. Overall, this EKG is unremarkable - Related Data Home Medications Medication Instructions Recorded Confirmed Atorvastatin [Lipitor] 10 mg PO HS 09/16/19 02/23/21 lisinopriL 20 mg PO BID 09/16/19 02/23/21 Metoprolol Succinate (ER) [Toprol 50 mg PO HS 09/17/19 02/23/21 XL] Colchicine 0.6 mg PO DAILY PRN 02/23/21 02/23/21 amLODIPine [Norvasc] 10 mg PO HS 02/23/21 02/23/21 metFORMIN HCL [Glucophage] 1,000 mg PO BID 02/23/21 02/23/21 Allergies Allergy/AdvReac Type Severity Reaction Status Date / Time No Known Allergies Allergy Verified 02/23/21 14:13 Review of Systems ROS Statement: Those systems with pertinent positive or pertinent negative responses have been documented in the HPI. ROS Other: All systems not noted in ROS Statement are negative. Past Medical History Past Medical History: Hypertension Additional Past Medical History / Comment(s): past hx. colon polyps, L wrist ORIF, L TKA, L cararact removed History of Any Multi-Drug Resistant Organisms: None Reported Past Surgical History: Joint Replacement, Orthopedic Surgery Additional Past Surgical History / Comment(s): left cataract removed couple weeks ago, colonoscopies, left wrist ORIF Past Anesthesia/Blood Transfusion Reactions: No Reported Reaction Past Psychological History: No Psychological Hx Reported Smoking Status: Never smoker Past Alcohol Use History: None Reported Past Drug Use History: None Reported - Past Family History Father Family Medical History: Cancer Sister(s) Family Medical History: Cancer Brother(s) Family Medical History: Cancer General Exam Limitations: no limitations Course Vital Signs 02/23/21 02/23/21 13:23 14:08 Temperature 98.8 F Pulse Rate 76 Respiratory 20 Rate Blood Pressure 114/75 O2 Sat by Pulse 93 L 95 Oximetry Medical Decision Making - Lab Data Result diagrams: 02/23/21 13:57 02/23/21 13:57 Lab Results 02/23/21 02/23/21 02/23/21 Range/Units 13:55 13:57 13:57 WBC 6.5 (3.8-10.6) k/uL RBC 4.55 (4.30-5.90) m/uL Hgb 12.5 L (13.0-17.5) gm/dL Hct 37.5 L (39.0-53.0) % MCV 82.3 (80.0-100.0) fL MCH 27.5 (25.0-35.0) pg MCHC 33.4 (31.0-37.0) g/dL RDW 14.6 (11.5-15.5) % Plt Count 228 (150-450) k/uL MPV 8.5 Neutrophils % 81 % Lymphocytes % 11 % Monocytes % 6 % Eosinophils % 1 % Basophils % 0 % Neutrophils # 5.3 (1.3-7.7) k/uL Lymphocytes # 0.7 L (1.0-4.8) k/uL Monocytes # 0.4 (0-1.0) k/uL Eosinophils # 0.1 (0-0.7) k/uL Basophils # 0.0 (0-0.2) k/uL PT 11.3 (9.0-12.0) sec INR 1.1 (<1.2) APTT 24.8 (22.0-30.0) sec D-Dimer (<0.60) mg/L FEU Sodium (137-145) mmol/L Potassium (3.5-5.1) mmol/L Chloride (98-107) mmol/L Carbon Dioxide (22-30) mmol/L Anion Gap mmol/L BUN (9-20) mg/dL Creatinine (0.66-1.25) mg/dL Est GFR (CKD-EPI)AfAm (>60 ml/min/1.73 sqM) Est GFR (CKD-EPI)NonAf (>60 ml/min/1.73 sqM) Glucose (74-99) mg/dL Plasma Lactic Acid Marco Antonio (0.7-2.0) mmol/L Calcium (8.4-10.2) mg/dL Magnesium (1.6-2.3) mg/dL C-Reactive Protein (<1.0) mg/dL Blood Type O Positive Blood Type Confirm Blood Type Recheck No Previous Record Bld Type Recheck Status CABO Indicated Antibody Screen NEGATIVE Spec Expiration Date 02/26/2021235402/23/21 02/23/21 02/23/21 Range/Units 13:57 13:57 14:00 WBC (3.8-10.6) k/uL RBC (4.30-5.90) m/uL Hgb (13.0-17.5) gm/dL Hct (39.0-53.0) % MCV (80.0-100.0) fL MCH (25.0-35.0) pg MCHC (31.0-37.0) g/dL RDW (11.5-15.5) % Plt Count (150-450) k/uL MPV Neutrophils % % Lymphocytes % % Monocytes % % Eosinophils % % Basophils % % Neutrophils # (1.3-7.7) k/uL Lymphocytes # (1.0-4.8) k/uL Monocytes # (0-1.0) k/uL Eosinophils # (0-0.7) k/uL Basophils # (0-0.2) k/uL PT (9.0-12.0) sec INR (<1.2) APTT (22.0-30.0) sec D-Dimer (<0.60) mg/L FEU Sodium 131 L (137-145) mmol/L Potassium 4.6 (3.5-5.1) mmol/L Chloride 102 (98-107) mmol/L Carbon Dioxide 21 L (22-30) mmol/L Anion Gap 8 mmol/L BUN 23 H (9-20) mg/dL Creatinine 1.01 (0.66-1.25) mg/dL Est GFR (CKD-EPI)AfAm >90 (>60 ml/min/1.73 sqM) Est GFR (CKD-EPI)NonAf 78 (>60 ml/min/1.73 sqM) Glucose 104 H (74-99) mg/dL Plasma Lactic Acid Marco Antonio 1.4 (0.7-2.0) mmol/L Calcium 8.9 (8.4-10.2) mg/dL Magnesium 1.6 (1.6-2.3) mg/dL C-Reactive Protein (<1.0) mg/dL Blood Type Blood Type Confirm O Positive Blood Type Recheck Bld Type Recheck Status Antibody Screen Spec Expiration Date 02/23/21 02/23/21 Range/Units 14:39 14:39 WBC (3.8-10.6) k/uL RBC (4.30-5.90) m/uL Hgb (13.0-17.5) gm/dL Hct (39.0-53.0) % MCV (80.0-100.0) fL MCH (25.0-35.0) pg MCHC (31.0-37.0) g/dL RDW (11.5-15.5) % Plt Count (150-450) k/uL MPV Neutrophils % % Lymphocytes % % Monocytes % % Eosinophils % % Basophils % % Neutrophils # (1.3-7.7) k/uL Lymphocytes # (1.0-4.8) k/uL Monocytes # (0-1.0) k/uL Eosinophils # (0-0.7) k/uL Basophils # (0-0.2) k/uL PT (9.0-12.0) sec INR (<1.2) APTT (22.0-30.0) sec D-Dimer 0.96 H (<0.60) mg/L FEU Sodium (137-145) mmol/L Potassium (3.5-5.1) mmol/L Chloride (98-107) mmol/L Carbon Dioxide (22-30) mmol/L Anion Gap mmol/L BUN (9-20) mg/dL Creatinine (0.66-1.25) mg/dL Est GFR (CKD-EPI)AfAm (>60 ml/min/1.73 sqM) Est GFR (CKD-EPI)NonAf (>60 ml/min/1.73 sqM) Glucose (74-99) mg/dL Plasma Lactic Acid Marco Antonio (0.7-2.0) mmol/L Calcium (8.4-10.2) mg/dL Magnesium (1.6-2.3) mg/dL C-Reactive Protein 19.5 H (<1.0) mg/dL Blood Type Blood Type Confirm Blood Type Recheck Bld Type Recheck Status Antibody Screen Spec Expiration Date Disposition Clinical Impression: COVID-19 Disposition: ADMITTED IP TO THIS HOSP Condition: Fair Referrals: Kt Whitfield DO [Primary Care Provider] - 1-2 days
[2021-02-23] MEDS: HEPARIN SOD,PORK IN 0.45% NACL 25,000 UNIT in 0.45% NACL 1 250ML.BAG IV SCH (14:00)
[2021-02-23 14:19] LABS: Basophils % (A) 0 %; Eosinophils # (A) 0.1 k/uL (0-0.7); Eosinophils % (A) 1 %; HCT 37.5 % (39.0-53.0); HGB 12.5 gm/dL (13.0-17.5); Lymphocytes # (A) 0.7 k/uL (1.0-4.8); Lymphocytes % (A) 11 %; MCH 27.5 pg (25.0-35.0); MCHC 33.4 g/dL (31.0-37.0); MCV 82.3 fL (80.0-100.0); Mean Platelet Volume 8.5; Monocytes # (A) 0.4 k/uL (0-1.0); Monocytes % (A) 6 %; Neutrophils # (A) 5.3 k/uL (1.3-7.7); Neutrophils % (A) 81 %; Platelet Count 228 k/uL (150-450); RBC 4.55 m/uL (4.30-5.90); RDW 14.6 % (11.5-15.5); WBC 6.5 k/uL (3.8-10.6)
[2021-02-23] MEDS ORDERED: NALOXONE 0.4 MG/ML 1 ML VIAL IV PRN (14:22)
[2021-02-23 14:35] LABS: African American GFR (CKD) >90 (>60 ml/min/1.73 sqM); Anion Gap 8 mmol/L; Blood Urea Nitrogen 23 mg/dL (9-20); Calcium 8.9 mg/dL (8.4-10.2); Carbon Dioxide 21 mmol/L (22-30); Chloride 102 mmol/L (98-107); Glucose 104 mg/dL (74-99); Magnesium 1.6 mg/dL (1.6-2.3); Non-African American GFR(CKD) 78 (>60 ml/min/1.73 sqM); Potassium 4.6 mmol/L (3.5-5.1); Sodium 131 mmol/L (137-145)
[2021-02-23 14:40] LABS: INR 1.1 (<1.2); Partial Thromboplastin Time 24.8 sec (22.0-30.0); Prothrombin Time 11.3 sec (9.0-12.0)
[2021-02-24] MEDS: SODIUM CHLORIDE 0.9% 1,000 ML IV SCH ×2 (01:31→12:37)
[2021-02-24] MEDS: HEPARIN SOD,PORK IN 0.45% NACL 25,000 UNIT in 0.45% NACL 1 250ML.BAG IV SCH ×2 (02:43→15:58)
[2021-02-24 07:09] LABS: Glucose,Whole Blood 131 mg/dL (75-99)
[2021-02-24 10:02] LABS: African American GFR (CKD) 88 (>60 ml/min/1.73 sqM); Anion Gap 11 mmol/L; Blood Urea Nitrogen 29 mg/dL (9-20); Calcium 9.3 mg/dL (8.4-10.2); Carbon Dioxide 18 mmol/L (22-30); Chloride 106 mmol/L (98-107); Glucose 212 mg/dL (74-99); Non-African American GFR(CKD) 76 (>60 ml/min/1.73 sqM); Sodium 135 mmol/L (137-145)
[2021-02-24] MEDS ORDERED: COLCHICINE 0.6 MG EACH PO PRN (10:36)
[2021-02-24] MEDS ORDERED: REMDESIVIR 200 MG in SODIUM CHLORIDE 0.9% 250 ML IVPB ONE (11:00)
[2021-02-24] MEDS: lisinopriL 20 MG TAB PO SCH ×2 (11:09→21:30)
[2021-02-24] MEDS: DEXAMETHASONE SOD PHOSPHATE 10 MG/ML 1 ML VIAL IVP SCH (11:09)
[2021-02-24] MEDS: ZINC SULFATE 220 MG CAP PO SCH (11:09)
[2021-02-24] MEDS: metFORMIN 500 MG TAB PO SCH ×2 (11:09→21:29)
[2021-02-24] MEDS: ASCORBIC ACID 500 MG TAB PO SCH ×2 (11:09→21:29)
[2021-02-24] MEDS: CHOLECALCIFEROL 25 MCG (1000 IU) TABLET PO SCH (11:09)
[2021-02-24 11:49] LABS: Glucose,Whole Blood 151 mg/dL (75-99)
[2021-02-24] MEDS ORDERED: LACTULOSE 20 GM/30 ML CUP PO PRN (12:37)
[2021-02-24] MEDS ORDERED: MAGNESIUM HYDROXIDE 2,400 MG/10 ML CUP PO PRN (12:37)
[2021-02-24] MEDS ORDERED: ACETAMINOPHEN TAB 325 MG TAB PO PRN (12:37)
[2021-02-24] MEDS ORDERED: ONDANSETRON 4 MG/2 ML VIAL IVP PRN (12:37)
[2021-02-24] MEDS ORDERED: MAG HYDROX/AL HYDROX/SIMETH 30 ML CUP PO PRN (12:37)
[2021-02-24] MEDS ORDERED: CALCIUM CARBONATE 500 MG CHEWABLE PO PRN (12:37)
--- NOTE | 2021-02-24 12:37 | CT ---
CT CHEST FOR PULMONARY EMBOLISM. EXAMINATION TYPE: CT chest angio for PE DATE OF EXAM: 02/24/2021 INDICATION: SOB, elevated d-dimer, + covid CT DLP: 1003.7 mGycm, Automated exposure control for dose reduction was used. CONTRAST: Patient injected with 100 mL of Isovue 370. COMPARISON: 02/23/2021 TECHNIQUE: CT of the chest is performed on a spiral scan at 2 mm thick sections. Study is performed with intravenous contrast timed for evaluation for pulmonary embolism. This will limit additional po rtions of the evaluation. 3-D MIP images reconstructed by the technologist are reviewed on the compu ter in the coronal and sagittal planes. FINDINGS: Contrast timing is suboptimal for pulmonary embolism. No obvious central large pulmonary emboli are e vident. The aorta tapers to its visualized course. No mediastinal or hilar adenopathy enlarged by CT criteria is evident. Previous prominent pretracheal lymph node is less apparent on the current study. Right hilar lymph node measures 1.1 cm. The ascend ing aorta diameter at the level of the main pulmonary artery is 3.4 cm. The main pulmonary artery di ameter at the bifurcation is 3.0 cm. Patchy groundglass opacities and infiltrates are present. Correlate for atypical pneumonia. Limited CT section through the upper abdomen are unremarkable. IMPRESSIONS: 1. No obvious pulmonary embolism. There is limitation with contrast timing limiting the pulmonary emb olism evaluation. 2. Diffuse scattered groundglass opacities and infiltrates similar to comparison
[2021-02-24] MEDS: INSULIN ASPART (NovoLOG) 100 UNIT/ML VIAL SQ SCH ×2 (13:06→17:49)
--- NOTE | 2021-02-24 13:45 | P.HPIM ---
History of Present Illness H&P Date: 02/24/21 Chief Complaint: Short of breath This is a pleasant 65-year-old patient of Dr. Whitfield. Chronic stable medical conditions include diabetes, hypertension, obesity, hyperlipidemia. Osteoarthritis. About 7 days ago patient started feeling tired. Increased sleepiness. Chills. This Sunday went to work and he felt to became short of breath. Sunday is guarded as ordered as COVID test and came back to be positive yesterday. The meantime patient become more short of breath. No headache. Loss of taste. No diarrhea. Tired. Pulse ox on room air in the ER was 88%. Admitted. Started on steroids. Nasal cannula. Patient did not take the vaccine for COVID 19. Computed tomography scan of the chest done yesterday as outpatient showed bilateral infiltrates. Due to suboptimal contrast could not rule out subsegmental embolism. Mild aortic aneurysm 4.1 cm. Review of systems: GEN.: Tired decreased appetite EYES: None HEENT: Loss of taste NECK: None RESPIRATORY: As above CARDIOVASCULAR: None GASTROINTESTINAL: None GENITOURINARY: None MUSCULOSKELETAL: Joint pains LYMPHATICS: None HEMATOLOGICAL: None PSYCHIATRY: None NEUROLOGICAL: None Past medical history to include: Diabetes, hypertension, colon polyps, osteoarthritis Social history: Does not smoke or drink alcohol. 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 Family history: Thyroid cancer Physical examination: VITAL SIGNS: 98.8, 76, 20, 140s/75, 88% on room air GENERAL: BMI 35, sitting up in chair, awake, slightly tired. EYES: Pupils equal. Conjunctiva normal. HEENT: External appearance of nose and ears normal, oral cavity grossly normal. NECK: JVD not raised; masses not palpable. HEART: First and second heart sounds are normal; no edema. LUNGS: Respiratory rate increased, decreased breaths on some basal crackles. ABDOMEN: Soft, nontender, liver spleen not palpable, no masses palpable. PSYCH: Alert and oriented x3; mood and affect normal. MUSCULAR skeletal: Evidence of OA NEUROLOGICAL: Cranial nerves grossly intact; no facial asymmetry, power and sensation grossly intact. LYMPHATICS: No lymph nodes palpable in the axilla and neck INVESTIGATIONS, reviewed in the clinical context: CT chest [February 24]: PE unlikely. Diffuse scattered groundglass. White count 6.5 globin 12.5 platelets 228 d-dimer 0.96 sodium 131 potassium 4.6 BUN 23 creatinine 1.01 CRP 19.5 EKG tracing personally reviewed by me-normal sinus rhythm. Rate 75 CT chest [February 23]: Bilateral infiltrates. Cannot rule out PE. Assessment and plan: -Bilateral COVID 19 pneumonitis, and vaccinated patient. Symptoms started 7 days ago. Dexamethasone 6 mg. Supplement vitamin C vitamin D zinc. Subcu Lovenox -IV heparin monitoring Follow PTT -Pulmonary embolism unlikely. No COVID-19 is thrombogenic stage. At this point is no significant findings of PE. -Diabetes mellitus type 2 on oral hypoglycemic. Continue Glucophage.. Follow Accu-Cheks -Essential hypertension Lisinopril 20 mg twice a day Norvasc 10 mg daily at bedtime. Toprol-XL 50 mg daily at bedtime -Hyperlipidemia Lipitor 10 mg daily at bedtime -Obesity BMI 35 Weight loss measures. Dexamethasone 6 mg. IV Remdesivir started by pulmonary. Should be able to stop IV heparin when okay with pulmonary. Care was discussed with the patient. Questions answered. Past Medical History Past Medical History: Diabetes Mellitus, Hypertension Additional Past Medical History / Comment(s): colon polyps History of Any Multi-Drug Resistant Organisms: None Reported Past Surgical History: Joint Replacement, Orthopedic Surgery Additional Past Surgical History / Comment(s): left cataract removed, colonoscopies, left wrist ORIF, R. Hip replacement, L TKA, colon polyps removed Past Anesthesia/Blood Transfusion Reactions: No Reported Reaction Past Psychological History: No Psychological Hx Reported Smoking Status: Never smoker Past Alcohol Use History: None Reported Past Drug Use History: None Reported - Past Family History Father Family Medical History: Cancer Additional Family Medical History / Comment(s): lung Mother Family Medical History: COPD Sister(s) Family Medical History: Cancer Additional Family Medical History / Comment(s): thyroid Brother(s) Family Medical History: Cancer Additional Family Medical History / Comment(s): one brother had jaw cancer. one brother had prostate cancer Medications and Allergies Home Medications Medication Instructions Recorded Confirmed Type Atorvastatin [Lipitor] 10 mg PO HS 09/16/19 02/23/21 History lisinopriL 20 mg PO BID 09/16/19 02/23/21 History Metoprolol Succinate (ER) [Toprol 50 mg PO HS 09/17/19 02/23/21 History XL] Colchicine 0.6 mg PO DAILY PRN 02/23/21 02/23/21 History amLODIPine [Norvasc] 10 mg PO HS 02/23/21 02/23/21 History metFORMIN HCL [Glucophage] 1,000 mg PO BID 02/23/21 02/23/21 History Allergies Allergy/AdvReac Type Severity Reaction Status Date / Time No Known Allergies Allergy Verified 02/23/21 14:13 Physical Exam Vitals: Vital Signs Temp Pulse Pulse Resp BP BP Pulse Ox 02/24/21 10:00 97.7 F 76 20 132/77 93 L 02/24/21 05:35 97.7 F 68 18 132/76 91 L 02/24/21 02:38 97.7 F 68 21 114/67 91 L 02/24/21 00:40 97.5 F L 70 18 102/61 94 L 02/24/21 00:00 77 18 105/64 95 02/23/21 20:28 68 20 95/65 95 02/23/21 18:50 75 18 126/80 95 02/23/21 16:03 73 18 123/68 94 L 02/23/21 14:08 95 02/23/21 13:40 88 L 02/23/21 13:23 98.8 F 76 20 114/75 93 L Intake and Output 02/23/21 02/24/21 02/24/21 22:59 06:59 14:59 Intake Total 182.126 132.404 0 Balance 182.126 132.404 0 Intake: Intake, IV Titration 182.126 132.404 0 Amount Heparin Sod,Pork in 0.45% 182.126 132.404 0 NaCl 25,000 unit In 0.45 % NaCl 1 250ml.bag @ 18 UNITS/KG/HR 22.861 mls/hr IV .[id number] [facility] Rx#: [id number] Other: Voiding Method Toilet # Voids 1 Weight 127.006 kg Results CBC & Chem 7: 02/23/21 13:57 02/24/21 09:15 Labs: Abnormal Lab Results - Last 24 Hours (Table) 02/23/21 02/23/21 02/23/21 Range/Units 13:57 13:57 14:39 Hgb 12.5 L (13.0-17.5) gm/dL Hct 37.5 L (39.0-53.0) % Lymphocytes # 0.7 L (1.0-4.8) k/uL APTT (22.0-30.0) sec D-Dimer 0.96 H (<0.60) mg/L FEU Sodium 131 L (137-145) mmol/L Carbon Dioxide 21 L (22-30) mmol/L BUN 23 H (9-20) mg/dL Glucose 104 H (74-99) mg/dL POC Glucose (mg/dL) (75-99) mg/dL C-Reactive Protein (<1.0) mg/dL 02/23/21 02/23/21 02/24/21 Range/Units 14:39 21:13 05:23 Hgb (13.0-17.5) gm/dL Hct (39.0-53.0) % Lymphocytes # (1.0-4.8) k/uL APTT 135.9 H* 93.3 H (22.0-30.0) sec D-Dimer (<0.60) mg/L FEU Sodium (137-145) mmol/L Carbon Dioxide (22-30) mmol/L BUN (9-20) mg/dL Glucose (74-99) mg/dL POC Glucose (mg/dL) (75-99) mg/dL C-Reactive Protein 19.5 H (<1.0) mg/dL 02/24/21 02/24/21 Range/Units 07:08 09:15 Hgb (13.0-17.5) gm/dL Hct (39.0-53.0) % Lymphocytes # (1.0-4.8) k/uL APTT (22.0-30.0) sec D-Dimer (<0.60) mg/L FEU Sodium 135 L (137-145) mmol/L Carbon Dioxide 18 L (22-30) mmol/L BUN 29 H (9-20) mg/dL Glucose 212 H (74-99) mg/dL POC Glucose (mg/dL) 131 H (75-99) mg/dL C-Reactive Protein (<1.0) mg/dL Thrombosis Risk Factor Assmnt - Choose All That Apply Each Factor Represents 1 point: Obesity (BMI >25), Serious lung disease incl. pneumonia (< 1month) Each Risk Factor Represents 2 Points: Age 61-74 years Thrombosis Risk Factor Assessment Total Risk Factor Score: 4 Thrombosis Risk Factor Assessment Level: Moderate Risk
--- NOTE | 2021-02-24 14:56 | XR ---
EXAMINATION TYPE: XR chest 1V DATE OF EXAM: 02/24/2021 COMPARISON: 06/07/2018 HISTORY: Shortness of breath TECHNIQUE: Single frontal view of the chest is obtained. FINDINGS: Bilateral patchy infiltrates. Heart is enlarged. Curvature of the spine. Underlying COPD n oted. IMPRESSION: Bilateral patchy areas of infiltrate.
--- NOTE | 2021-02-24 16:25 | P.CNPUL ---
History of Present Illness Consult date: 02/24/21 Requesting physician: Shai Renner Reason for consult: dyspnea, hypoxemia, pneumonia, abnormal CXR/CT, other Chief complaint: Shortness of breath, chills, weakness History of present illness: 65-year-old white male patient of Dr. Whitfield with past medical history of hypertension, diabetes mellitus type 2, hyperlipidemia, lifetime nonsmoker, no EtOH use, who presented to the emergency department on 02/23/2021 for evaluation of shortness of breath. Patient began with symptoms of fatigue, sleeping a lot, chills that started last Sunday and over the weekend she also developed shortness of breath, on Sunday patient was tested for COVID-19 at his PCPs office, and on Sunday he was notified of a positive test. Patient is not vaccinated against COVID-19. 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 CT angiogram was ordered by his primary care doctor's which showed diffuse bilateral infiltrates, however peripheral emboli could not be ruled out per radiologist report. Patient denies any chest pain, he is afebrile, his breathing is non-labored, he does have a cough, which is nonproductive, he is currently activities of oxygen pulse ox is 93%, he was started on heparin infusion for possibility of pulmonary emboli. Started on Decadron in the emergency department, his admission blood work shows white blood cell count 7.5, hemoglobin of 12.5, lymphocyte count is 0.7, d-dimer 0.96, sodium is 131, potassium is 4.6, CO2 is 21, BUN is 23, creatinine is 1.01, CRP is 19.5, lactic acid is 1.4. CTA chest has been repeated showing no obvious pulmonary embolism, there is limitation with contrast timing limiting the pulmonary evaluation, and diffuse scattered groundglass opacities and infiltrates similar to comparison, follow-up d-dimer is negative today as 0.56. Review of Systems All systems: negative Constitutional: Reports fatigue, Reports fever, Reports weakness, Denies chills Eyes: denies blurred vision, denies pain Ears, nose, mouth and throat: Denies headache, Denies sore throat Cardiovascular: Denies chest pain, Denies shortness of breath Respiratory: Reports cough Gastrointestinal: Denies abdominal pain, Denies diarrhea, Denies nausea, Denies vomiting Musculoskeletal: Denies myalgias Integumentary: Denies pruritus, Denies rash Neurological: Denies numbness, Denies weakness Psychiatric: Denies anxiety, Denies depression Endocrine: Denies fatigue, Denies weight change Past Medical History Past Medical History: Diabetes Mellitus, Hypertension Additional Past Medical History / Comment(s): colon polyps History of Any Multi-Drug Resistant Organisms: None Reported Past Surgical History: Joint Replacement, Orthopedic Surgery Additional Past Surgical History / Comment(s): left cataract removed, colonoscopies, left wrist ORIF, R. Hip replacement, L TKA, colon polyps removed Past Anesthesia/Blood Transfusion Reactions: No Reported Reaction Past Psychological History: No Psychological Hx Reported Smoking Status: Never smoker Past Alcohol Use History: None Reported Past Drug Use History: None Reported - Past Family History Father Family Medical History: Cancer Additional Family Medical History / Comment(s): lung Mother Family Medical History: COPD Sister(s) Family Medical History: Cancer Additional Family Medical History / Comment(s): thyroid Brother(s) Family Medical History: Cancer Additional Family Medical History / Comment(s): one brother had jaw cancer. one brother had prostate cancer Medications and Allergies Home Medications Medication Instructions Recorded Confirmed Type Atorvastatin [Lipitor] 10 mg PO HS 09/16/19 02/23/21 History lisinopriL 20 mg PO BID 09/16/19 02/23/21 History Metoprolol Succinate (ER) [Toprol 50 mg PO HS 09/17/19 02/23/21 History XL] Colchicine 0.6 mg PO DAILY PRN 02/23/21 02/23/21 History amLODIPine [Norvasc] 10 mg PO HS 02/23/21 02/23/21 History metFORMIN HCL [Glucophage] 1,000 mg PO BID 02/23/21 02/23/21 History Allergies Allergy/AdvReac Type Severity Reaction Status Date / Time No Known Allergies Allergy Verified 02/23/21 14:13 Physical Exam Vitals: Vital Signs Temp Pulse Pulse Resp BP BP Pulse Ox 02/24/21 10:00 97.7 F 76 20 132/77 93 L 02/24/21 05:35 97.7 F 68 18 132/76 91 L 02/24/21 02:38 97.7 F 68 21 114/67 91 L 02/24/21 00:40 97.5 F L 70 18 102/61 94 L 02/24/21 00:00 77 18 105/64 95 02/23/21 20:28 68 20 95/65 95 02/23/21 18:50 75 18 126/80 95 02/23/21 16:03 73 18 123/68 94 L Intake and Output 02/23/21 02/24/21 02/24/21 22:59 06:59 14:59 Intake Total 182.126 132.404 0 Balance 182.126 132.404 0 Intake: Intake, IV Titration 182.126 132.404 0 Amount Heparin Sod,Pork in 0.45% 182.126 132.404 0 NaCl 25,000 unit In 0.45 % NaCl 1 250ml.bag @ 18 UNITS/KG/HR 22.861 mls/hr IV .[id number] [facility] Rx#: [id number] Other: Voiding Method Toilet # Voids 1 1 Weight 127.006 kg GENERAL EXAM: Alert, 65-year-old white male, 3 L of oxygen pulse ox of 90% comfortable in no apparent distress. HEAD: Normocephalic/atraumatic. EYES: Normal reaction of pupils, equal size. Conjunctiva pink, sclera white. NOSE: Clear with pink turbinates. THROAT: No erythema or exudates. NECK: No masses, no JVD, no thyroid enlargement, no adenopathy. CHEST: No chest wall deformity. Symmetrical expansion. LUNGS: Equal air entry with basilar crackles CVS: Regular rate and rhythm, normal S1 and S2, no gallops, no murmurs, no rubs ABDOMEN: Soft, nontender. No hepatosplenomegaly, normal bowel sounds, no guarding or rigidity. EXTREMITIES: No clubbing, no edema, no cyanosis, 2+ pulses and upper and lower extremities. MUSCULOSKELETAL: Muscle strength and tone normal. SPINE: No scoliosis or deformity SKIN: No rashes CENTRAL NERVOUS SYSTEM: Alert and oriented -3. No focal deficits, tone is normal in all 4 extremities. PSYCHIATRIC: Alert and oriented -3. Appropriate affect. Intact judgment and insight. Results - Laboratory Findings CBC and BMP: 02/23/21 13:57 02/24/21 09:15 PT/INR, D-dimer PT 11.3 sec (9.0-12.0) 02/23/21 13:57 INR 1.1 (<1.2) 02/23/21 13:57 D-Dimer 0.56 mg/L FEU (<0.60) 02/24/21 09:15 Abnormal lab findings: Abnormal Labs 02/23/21 02/23/21 02/23/21 13:57 13:57 14:39 Hgb 12.5 L Hct 37.5 L Lymphocytes # 0.7 L APTT D-Dimer 0.96 H Sodium 131 L Carbon Dioxide 21 L BUN 23 H Glucose 104 H POC Glucose (mg/dL) C-Reactive Protein 02/23/21 02/23/21 02/24/21 14:39 21:13 05:23 Hgb Hct Lymphocytes # APTT 135.9 H* 93.3 H D-Dimer Sodium Carbon Dioxide BUN Glucose POC Glucose (mg/dL) C-Reactive Protein 19.5 H 02/24/21 02/24/21 02/24/21 07:08 09:15 11:47 Hgb Hct Lymphocytes # APTT D-Dimer Sodium 135 L Carbon Dioxide 18 L BUN 29 H Glucose 212 H POC Glucose (mg/dL) 131 H 151 H C-Reactive Protein - Diagnostic Findings CT scan - chest: report reviewed, image reviewed Assessment and Plan Plan: Assessment: #1. Acute hypoxic respiratory failure related to acute COVID-19 pneumonia, patient started with symptoms 6 days ago, and he is a good candidate for Remdesivir. he is not vaccinated against COVID-19 #2. Mildly Elevated d-dimer, related to COVID-19 infection, and initial CT chest showed suboptimal opacification of the pulmonary arterial system, and scattered PEs were difficult to rule out him patient was started on heparin infusion. Subsequent CT angiogram chest shows no obvious pulmonary embolism, and there is again limitation with contrast timing living the pulmonary embolism however d-dimer today is negative at 0.56 making possibility of underlying pulmonary embolism less likely #3. Hypertension #4. Hyperlipidemia #5. Diabetes mellitus type 2 Plan: Repeat CTA chest has been reviewed, follow-up d-dimer is negative May discontinue the heparin infusion and start the patient on Lovenox 40 mg daily Start Remdesivir Continue Decadron Continue multivitamins Continue to follow his clinical course I performed a history & physical examination of the patient and discussed their management with my nurse practitioner, Jessie Quinones. I reviewed the nurse practitioner's note and agree with the documented findings and plan of care. Lung sounds are positive for diffuse wheezes throughout the lung cruz. The findings and the impression was discussed with the patient. I attest to the documentation by the nurse practitioner. Time with Patient: Greater than 30
[2021-02-24 17:06] LABS: Glucose,Whole Blood 136 mg/dL (75-99)
[2021-02-24 20:47] LABS: Glucose,Whole Blood 171 mg/dL (75-99)
[2021-02-24] MEDS: ALPRAZolam 0.25 MG TAB PO PRN (21:29)
[2021-02-24] MEDS: ATORVASTATIN 10 MG TAB PO SCH (21:30)
[2021-02-24] MEDS: amLODIPine 10 MG TAB PO SCH (21:30)
[2021-02-24] MEDS: METOPROLOL SUCCINATE (ER) 50 MG TAB.ER.24H PO SCH (21:30)
[2021-02-24] MEDS: MELATONIN 3 MG TABLET PO PRN (21:30)
[2021-02-25 06:46] LABS: Glucose,Whole Blood 120 mg/dL (75-99)
[2021-02-25] MEDS: INSULIN ASPART (NovoLOG) 100 UNIT/ML VIAL SQ SCH ×3 (06:58→17:35)
[2021-02-25 07:10] LABS: African American GFR (CKD) >90 (>60 ml/min/1.73 sqM); Anion Gap 8 mmol/L; Blood Urea Nitrogen 31 mg/dL (9-20); Calcium 8.9 mg/dL (8.4-10.2); Carbon Dioxide 20 mmol/L (22-30); Chloride 107 mmol/L (98-107); Glucose 116 mg/dL (74-99); Non-African American GFR(CKD) 83 (>60 ml/min/1.73 sqM); Potassium 4.8 mmol/L (3.5-5.1); Sodium 135 mmol/L (137-145)
[2021-02-25] MEDS: SODIUM CHLORIDE 0.9% 1,000 ML IV SCH (07:58)
[2021-02-25] MEDS: CHOLECALCIFEROL 25 MCG (1000 IU) TABLET PO SCH (08:00)
[2021-02-25] MEDS: metFORMIN 500 MG TAB PO SCH ×2 (08:00→21:21)
[2021-02-25] MEDS: DEXAMETHASONE SOD PHOSPHATE 10 MG/ML 1 ML VIAL IVP SCH (08:00)
[2021-02-25] MEDS: ASCORBIC ACID 500 MG TAB PO SCH ×2 (08:00→21:21)
[2021-02-25] MEDS: ZINC SULFATE 220 MG CAP PO SCH (08:00)
[2021-02-25] MEDS: ENOXAPARIN 40 MG/0.4 ML SYRINGE SQ SCH (08:00)
[2021-02-25] MEDS: lisinopriL 20 MG TAB PO SCH ×2 (08:00→21:22)
[2021-02-25] MEDS: REMDESIVIR 100 MG in SODIUM CHLORIDE 0.9% 250 ML IVPB SCH (10:39)
--- NOTE | 2021-02-25 10:59 | US ---
EXAMINATION TYPE: US venous doppler duplex LE DATE OF EXAM: 02/25/2021 10:04 AM COMPARISON: NONE CLINICAL HISTORY: elevated d-dimer. Pneumonia, covid 19 positive SIDE PERFORMED: Bilateral TECHNIQUE: The lower extremity deep venous system is examined utilizing real time linear array sonog monique with graded compression, doppler sonography and color-flow sonography. VESSELS IMAGED: Common Femoral Vein Deep Femoral Vein Greater Saphenous Vein * Femoral Vein Popliteal Vein Small Saphenous Vein * Proximal Calf Veins (* superficial vessels) There is normal flow, compressibility, vascular waveforms. Right Leg: Negative for DVT Left Leg: Negative for DVT Slow flow noted in left leg IMPRESSION: No evident deep venous thrombosis within the lower extremities from the level of the knee centrally
[2021-02-25 11:26] LABS: Glucose,Whole Blood 138 mg/dL (75-99)
--- NOTE | 2021-02-25 12:13 | P.PN ---
Subjective Progress Note Date: 02/25/21 Principal diagnosis: Dyspnea, hypoxia, COVID-19 65-year-old white male patient of Dr. Whitfield with past medical history of hypertension, diabetes mellitus type 2, hyperlipidemia, lifetime nonsmoker, no EtOH use, who presented to the emergency department on 02/23/2021 for evaluation of shortness of breath. Patient began with symptoms of fatigue, sleeping a lot, chills that started last Sunday and over the weekend she also developed shortness of breath, on Sunday patient was tested for COVID-19 at his PCPs office, and on Sunday he was notified of a positive test. Patient is not vaccinated against COVID-19. 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 CT angiogram was ordered by his primary care doctor's which showed diffuse bilateral infiltrates, however peripheral emboli could not be ruled out per radiologist report. Patient denies any chest pain, he is afebrile, his breathing is non-labored, he does have a cough, which is nonproductive, he is currently activities of oxygen pulse ox is 93%, he was started on heparin infusion for possibility of pulmonary emboli. Started on Decadron in the emergency department, his admission blood work shows white blood cell count 7.5, hemoglobin of 12.5, lymphocyte count is 0.7, d-dimer 0.96, sodium is 131, potassium is 4.6, CO2 is 21, BUN is 23, creatinine is 1.01, CRP is 19.5, lactic acid is 1.4. CTA chest has been repeated showing no obvious pulmonary embolism, there is limitation with contrast timing limiting the pulmonary evaluation, and diffuse scattered groundglass opacities and infiltrates similar to comparison, follow-up d-dimer is negative today as 0.56. On 02/25/2021 patient is seen in follow-up on medical surgical floor, is currently on 3 L of oxygen pulse ox is 97%, afebrile, hemodynamically stable. States he is feeling well, lung sounds reveal diminished breath sounds with minimal rales, yesterday's follow-up chest x-ray showed bilateral patchy areas of infiltrates. His d-dimer on today's labs is 0.66, sodium is 135, potassium is 4.8, chloride is 107, CO2 is 20, B1 is 31 and creatinine 0.96, DHS 950, CRP is 8.0. Lower extremity Dopplers are negative for DVT. Clinical patient states he is feeling well, breathing comfortably, overall feeling better Objective - Vital Signs Vital signs: Vital Signs Temp 97.9 F 02/25/21 09:01 Pulse 62 02/25/21 09:01 Resp 17 02/25/21 09:01 BP 103/63 02/25/21 09:01 Pulse Ox 93 L 02/25/21 09:01 Intake & Output 02/24/21 02/25/21 02/25/21 18:59 06:59 18:59 Intake Total 118.372 480 Balance 118.372 480 Intake: Intake, IV Titration 118.372 240 Amount Heparin Sod,Pork in 0.45% 118.372 NaCl 25,000 unit In 0.45 % NaCl 1 250ml.bag @ 18 UNITS/KG/HR 22.861 mls/hr IV .[id number] [facility] Rx#: [id number] Sodium Chloride 0.9% 1, 240 000 ml @ 20 mls/hr IV . Q24H [facility] Rx#:[id number] Oral 240 Other: Voiding Method Toilet Toilet # Voids 1 - Exam GENERAL EXAM: Alert, 65-year-old white male, 3 L of oxygen pulse ox of 93% comfortable in no apparent distress. HEAD: Normocephalic/atraumatic. EYES: Normal reaction of pupils, equal size. Conjunctiva pink, sclera white. NOSE: Clear with pink turbinates. THROAT: No erythema or exudates. NECK: No masses, no JVD, no thyroid enlargement, no adenopathy. CHEST: No chest wall deformity. Symmetrical expansion. LUNGS: Equal air entry with basilar crackles CVS: Regular rate and rhythm, normal S1 and S2, no gallops, no murmurs, no rubs ABDOMEN: Soft, nontender. No hepatosplenomegaly, normal bowel sounds, no guarding or rigidity. EXTREMITIES: No clubbing, no edema, no cyanosis, 2+ pulses and upper and lower extremities. MUSCULOSKELETAL: Muscle strength and tone normal. SPINE: No scoliosis or deformity SKIN: No rashes CENTRAL NERVOUS SYSTEM: Alert and oriented -3. No focal deficits, tone is normal in all 4 extremities. PSYCHIATRIC: Alert and oriented -3. Appropriate affect. Intact judgment and insight. - Labs CBC & Chem 7: 02/23/21 13:57 02/25/21 05:47 Labs: Abnormal Lab Results - Last 24 Hours (Table) 02/24/21 02/24/21 02/24/21 Range/Units 14:53 16:49 20:45 APTT 52.1 H (22.0-30.0) sec D-Dimer (<0.60) mg/L FEU Sodium (137-145) mmol/L Carbon Dioxide (22-30) mmol/L BUN (9-20) mg/dL Glucose (74-99) mg/dL POC Glucose (mg/dL) 136 H 171 H (75-99) mg/dL Lactate Dehydrogenase (313-618) U/L C-Reactive Protein (<1.0) mg/dL 02/25/21 02/25/21 02/25/21 Range/Units 05:47 05:47 05:47 APTT (22.0-30.0) sec D-Dimer 0.66 H (<0.60) mg/L FEU Sodium 135 L (137-145) mmol/L Carbon Dioxide 20 L (22-30) mmol/L BUN 31 H (9-20) mg/dL Glucose 116 H (74-99) mg/dL POC Glucose (mg/dL) (75-99) mg/dL Lactate Dehydrogenase 950 H (313-618) U/L C-Reactive Protein 8.0 H (<1.0) mg/dL 02/25/21 02/25/21 Range/Units 06:44 11:24 APTT (22.0-30.0) sec D-Dimer (<0.60) mg/L FEU Sodium (137-145) mmol/L Carbon Dioxide (22-30) mmol/L BUN (9-20) mg/dL Glucose (74-99) mg/dL POC Glucose (mg/dL) 120 H 138 H (75-99) mg/dL Lactate Dehydrogenase (313-618) U/L C-Reactive Protein (<1.0) mg/dL Assessment and Plan Plan: Assessment: #1. Acute hypoxic respiratory failure related to acute COVID-19 pneumonia, patient started with symptoms 6 days ago, and he is a good candidate for R emdesivir. he is not vaccinated against COVID-19. Remdesivir started on 02/24/2021 #2. Mildly Elevated d-dimer, related to COVID-19 infection, and initial CT chest showed suboptimal opacification of the pulmonary arterial system, and scattered PEs were difficult to rule out and patient was started on heparin infusion. Subsequent CT angiogram chest shows no obvious pulmonary embolism, and there is again limitation with contrast timing living the pulmonary embolism however d-dimer today is negative at 0.56 making possibility of underlying pulmonary embolism less likely #3. Hypertension #4. Hyperlipidemia #5. Diabetes mellitus type 2 Plan: Continue with current medical treatment Continue Decadron Continue Remdesivir, today is day 2 of treatment Continue Lovenox Lower extremity Dopplers were negative for DVT Remains stable and continues to improve may consider discharge home in the next 24 hours I performed a history & physical examination of the patient and discussed their management with my nurse practitioner, Jessie Quinones. I reviewed the nurse practitioner's note and agree with the documented findings and plan of care. Lung sounds are positive for diffuse wheezes throughout the lung cruz. The findings and the impression was discussed with the patient. I attest to the documentation by the nurse practitioner. Time with Patient: Less than 30
--- NOTE | 2021-02-25 12:33 | P.PN ---
Progress Note - Text Progress Note Date: 02/25/21 Chief Complaint: Short of breath This is a pleasant 65-year-old patient of Dr. Whitfield. Chronic stable medical conditions include diabetes, hypertension, obesity, hyperlipidemia. Osteoarthritis. About 7 days ago patient started feeling tired. Increased sleepiness. Chills. This Sunday went to work and he felt to became short of breath. Sunday is guarded as ordered as COVID test and came back to be positive yesterday. The meantime patient become more short of breath. No headache. Loss of taste. No diarrhea. Tired. Pulse ox on room air in the ER was 88%. Admitted. Started on steroids. Nasal cannula. Patient did not take the vaccine for COVID 19. Computed tomography scan of the chest done yesterday as outpatient showed bilateral infiltrates. Due to suboptimal contrast could not rule out subsegmental embolism. Mild aortic aneurysm 4.1 cm. Admitted with bilateral COVID 19 pneumonitis, acute hypoxic respiratory failure. Started on dexamethasone, IV heparin. PE was ruled out. Doppler ultrasound to lower external negative. Also started on Remdesivir. February 25: Sitting up in a chair. Breathing a bit better. On 3 L nasal cannula. Has been up to the bathroom. Using incentive spirometry. Review of systems: Was done for constitutional, cardiovascular, GI, pulmonary. relevant finding as above Active Medications Acetaminophen (Acetaminophen Tab 325 Mg Tab) 650 mg PO Q6HR PRN PRN Reason: Mild Pain or Fever > 100.5 Al Hydroxide/Mg Hydroxide (Mag Hydrox/Al Hydrox/Simeth 30 Ml Cup) 15 ml PO Q6HR PRN PRN Reason: Indigestion Alprazolam (Alprazolam 0.25 Mg Tab) 0.25 mg PO Q6HR PRN PRN Reason: Anxiety Last Admin: 02/24/21 21:29 Dose: 0.25 mg Documented by: Amlodipine Besylate (Amlodipine 10 Mg Tab) 10 mg PO [facility] Last Admin: 02/24/21 21:30 Dose: 10 mg Documented by: Ascorbic Acid (Ascorbic Acid 500 Mg Tab) 500 mg PO BID [facility] Last Admin: 02/25/21 08:00 Dose: 500 mg Documented by: Atorvastatin Calcium (Atorvastatin 10 Mg Tab) 10 mg PO [facility] Last Admin: 02/24/21 21:30 Dose: 10 mg Documented by: Calcium Carbonate/Glycine (Calcium Carbonate 500 Mg Chewable) 1,000 mg PO Q4HR PRN PRN Reason: Dyspepsia Cholecalciferol (Cholecalciferol 25 Mcg (1000 Iu) Tablet) 25 mcg PO DAILY [facility] Last Admin: 02/25/21 08:00 Dose: 25 mcg Documented by: Colchicine (Colchicine 0.6 Mg Each) 0.6 mg PO DAILY PRN PRN Reason: gout Dexamethasone Sodium Phosphate (Dexamethasone Sod Phosphate 10 Mg/Ml 1 Ml Vial) 6 mg IVP DAILY [facility] Last Admin: 02/25/21 08:00 Dose: 6 mg Documented by: Enoxaparin Sodium (Enoxaparin 40 Mg/0.4 Ml Syringe) 40 mg SQ DAILY [facility] Last Admin: 02/25/21 08:00 Dose: 40 mg Documented by: Sodium Chloride (Saline 0.9%) 1,000 mls @ 20 mls/hr IV .Q24H [facility] Last Admin: 02/25/21 07:58 Dose: 20 mls/hr Documented by: Remdesivir 100 mg/ Sodium (Chloride) 250 mls @ 250 mls/hr IVPB Q24H [facility] Stop: 02/28/21 11:59 Last Admin: 02/25/21 10:39 Dose: 250 mls/hr Documented by: Insulin Aspart (Insulin Aspart (Novolog) 100 Unit/Ml Vial) 0 unit SQ AC-TID [facility]; Protocol Last Admin: 02/25/21 11:39 Dose: 1 unit Documented by: Lactulose (Lactulose 20 Gm/30 Ml Cup) 20 gm PO DAILY PRN PRN Reason: Constipation Lisinopril (Lisinopril 20 Mg Tab) 20 mg PO BID [facility] Last Admin: 02/25/21 08:00 Dose: 20 mg Documented by: Magnesium Hydroxide (Magnesium Hydroxide 2,400 Mg/10 Ml Cup) 2,400 mg PO DAILY PRN PRN Reason: Constipation Melatonin (Melatonin 3 Mg Tablet) 3 mg PO HS PRN PRN Reason: Insomnia Last Admin: 02/24/21 21:30 Dose: 3 mg Documented by: Metformin HCl (Metformin 500 Mg Tab) 1,000 mg PO BID [facility] Last Admin: 02/25/21 08:00 Dose: 1,000 mg Documented by: Metoprolol Succinate (Metoprolol Succinate (Er) 50 Mg Tab.Er.24h) 50 mg PO [facility] Last Admin: 02/24/21 21:30 Dose: 50 mg Documented by: Naloxone HCl (Naloxone 0.4 Mg/Ml 1 Ml Vial) 0.2 mg IV Q2M PRN PRN Reason: Opioid Reversal Ondansetron HCl (Ondansetron 4 Mg/2 Ml Vial) 4 mg IVP Q8HR PRN PRN Reason: Nausea And Vomiting Zinc Sulfate (Zinc Sulfate 220 Mg Cap) 220 mg PO DAILY [facility] Last Admin: 02/25/21 08:00 Dose: 220 mg Documented by: Past medical history to include: Diabetes, hypertension, colon polyps, osteoarthritis Social history: Does not smoke or drink alcohol. 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 Family history: Thyroid cancer Physical examination: VITAL SIGNS: 97.9, 62, 17, 103/63, 93% on 3 L GENERAL: Sitting up in a chair, breathing better LUNGS: Respiratory rate increased, PSYCH: Alert and oriented x3; mood and affect normal. NEUROLOGICAL: Cranial nerves grossly intact; no facial asymmetry, moving all 4 limbs Breast exam as per pulmonary and nursing INVESTIGATIONS, reviewed in the clinical context: February 25: D-dimer 0.66 potassium 4.8 creatinine 0.96 CRP 8 Doppler ultrasound: Negative for DVT CT chest [February 24]: PE unlikely. Diffuse scattered groundglass. White count 6.5 globin 12.5 platelets 228 d-dimer 0.96 sodium 131 potassium 4.6 BUN 23 creatinine 1.01 CRP 19.5 EKG tracing personally reviewed by me-normal sinus rhythm. Rate 75 CT chest [February 23]: Bilateral infiltrates. Cannot rule out PE. Chest x-ray film personally reviewed by me-<[portable film] hyperinflation. Infiltrates. Cardiomegaly. Assessment and plan: -Bilateral COVID 19 pneumonitis, and vaccinated patient. Symptoms started 7 days prior to admission. Dexamethasone 6 mg. Supplement vitamin C vitamin D zinc. Subcu Lovenox -Acute hypoxic respiratory failure from COVID 19 93% on 3 L -IV heparin monitoring: Discontinued Follow PTT -Pulmonary embolism unlikely. No COVID-19 is thrombogenic stage. At this point is no significant findings of PE. -Diabetes mellitus type 2 on oral hypoglycemic. Continue Glucophage.. Follow Accu-Cheks -Essential hypertension Lisinopril 20 mg twice a day Norvasc 10 mg daily at bedtime. Toprol-XL 50 mg da cuauhtemoc at bedtime -Hyperlipidemia Lipitor 10 mg daily at bedtime -Obesity BMI 35 Weight loss measures. Dexamethasone 6 mg. IV Remdesivir IV heparin discontinued. Increase activity. Incentive spirometry.
[2021-02-25 16:25] LABS: Glucose,Whole Blood 189 mg/dL (75-99)
[2021-02-25 20:47] LABS: Glucose,Whole Blood 189 mg/dL (75-99)
[2021-02-25] MEDS: ALPRAZolam 0.25 MG TAB PO PRN (21:21)
[2021-02-25] MEDS: amLODIPine 10 MG TAB PO SCH (21:22)
[2021-02-25] MEDS: MELATONIN 3 MG TABLET PO PRN (21:22)
[2021-02-25] MEDS: ATORVASTATIN 10 MG TAB PO SCH (21:22)
[2021-02-25] MEDS: METOPROLOL SUCCINATE (ER) 50 MG TAB.ER.24H PO SCH (21:22)
[2021-02-26 07:03] LABS: Glucose,Whole Blood 114 mg/dL (75-99)
[2021-02-26] MEDS: INSULIN ASPART (NovoLOG) 100 UNIT/ML VIAL SQ SCH ×2 (07:31→11:58)
[2021-02-26] MEDS: ENOXAPARIN 40 MG/0.4 ML SYRINGE SQ SCH (08:34)
[2021-02-26] MEDS: DEXAMETHASONE SOD PHOSPHATE 10 MG/ML 1 ML VIAL IVP SCH (08:34)
[2021-02-26] MEDS: metFORMIN 500 MG TAB PO SCH (08:35)
[2021-02-26] MEDS: ZINC SULFATE 220 MG CAP PO SCH (08:35)
[2021-02-26] MEDS: CHOLECALCIFEROL 25 MCG (1000 IU) TABLET PO SCH (08:36)
[2021-02-26] MEDS: lisinopriL 20 MG TAB PO SCH (08:36)
[2021-02-26] MEDS: ASCORBIC ACID 500 MG TAB PO SCH (08:36)
[2021-02-26] MEDS: REMDESIVIR 100 MG in SODIUM CHLORIDE 0.9% 250 ML IVPB SCH (10:55)
[2021-02-26 11:22] VITALS: BP 109/75; PULSE 61; RESP 18; TEMP 97.6
[2021-02-26 11:45] LABS: Glucose,Whole Blood 245 mg/dL (75-99)
--- NOTE | 2021-02-26 13:12 | P.PN ---
Subjective Progress Note Date: 02/26/21 Principal diagnosis: CoVID pneumonia 65-year-old white male patient of Dr. Whitfield with past medical history of hypertension, diabetes mellitus type 2, hyperlipidemia, lifetime nonsmoker, no EtOH use, who presented to the emergency department on 02/23/2021 for evaluation of shortness of breath. Patient began with symptoms of fatigue, sleeping a lot, chills that started last Sunday and over the weekend she also developed shortness of breath, on Sunday patient was tested for COVID-19 at his PCPs office, and on Sunday he was notified of a positive test. Patient is not vacc inated against COVID-19. 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 CT angiogram was ordered by his primary care doctor's which showed diffuse bilateral infiltrates, however peripheral emboli could not be ruled out per radiologist report. Patient denies any chest pain, he is afebrile, his breathing is non- labored, he does have a cough, which is nonproductive, he is currently activities of oxygen pulse ox is 93%, he was started on heparin infusion for possibility of pulmonary emboli. Started on Decadron in the emergency department, his admission blood work shows white blood cell count 7.5, he moglobin of 12.5, lymphocyte count is 0.7, d-dimer 0.96, sodium is 131, potassium is 4.6, CO2 is 21, BUN is 23, creatinine is 1.01, CRP is 19.5, lactic acid is 1.4. CTA chest has been repeated showing no obvious pulmonary embolism, there is limitation with contrast timing limiting the pulmonary evaluation, and diffuse scattered groundglass opacities and infiltrates similar to comparison, follow-up d-dimer is negative today as 0.56. On 02/25/2021 patient is seen in follow-up on medical surgical floor, is currently on 3 L of oxygen pulse ox is 97%, afebrile, hemodynamically stable. States he is feeling well, lung sounds reveal diminished breath sounds with minimal rales, yesterday's follow-up chest x-ray showed bilateral patchy areas of infiltrates. His d-dimer on today's labs is 0.66, sodium is 135, potassium is 4.8, chloride is 107, CO2 is 20, B1 is 31 and creatinine 0.96, DHS 950, CRP is 8.0. Lower extremity Dopplers are negative for DVT. Clinical patient states he is feeling well, breathing comfortably, overall feeling better The patient is seen today 02/26/2021 in follow-up on the regular medical floor. He is currently sitting up in a chair at the bedside. Awake and alert in no acute distress. He is maintaining good O2 saturations in the 90s on 2 L/m per nasal cannula. Doppler of the lower extremities were negative for DVT. Blood glucose 114. He is continued on Decadron, Lovenox, vitamin supplements. This is day #3 of Remdesivir. He is anxious to go home. Objective - Vital Signs Vital signs: Vital Signs Temp 97.6 F 02/26/21 10:00 Pulse 61 02/26/21 10:00 Resp 18 02/26/21 10:00 BP 109/75 02/26/21 10:00 Pulse Ox 93 L 02/26/21 10:00 Intake & Output 02/25/21 02/26/21 02/26/21 18:59 06:59 18:59 Intake Total 470 720 Balance 470 720 Intake: IV 470 Remdesivir 100 mg In 250 Sodium Chloride 0.9% 250 ml @ 250 mls/hr IVPB Q24H [facility] Rx#:[id number] Sodium Chloride 0.9% 1, 220 000 ml @ 20 mls/hr IV . Q24H [facility] Rx#:[id number] Oral 720 Other: Voiding Method Toilet Toilet Toilet - Exam GENERAL EXAM: Alert, pleasant 65-year-old gentleman, on 2 L nasal cannula, comfortable in no apparent distress. HEAD: Normocephalic. EYES: Normal reaction of pupils, equal size. NOSE: Clear with pink turbinates. THROAT: No erythema or exudates. NECK: No masses, no JVD. CHEST: No chest wall deformity. LUNGS: Equal air entry with faint crackles in the posterior bases. CVS: S1 and S2 normal with no audible murmur, regular rhythm. ABDOMEN: No hepatosplenomegaly, normal bowel sounds, no guarding or rigidity. SPINE: No scoliosis or deformity SKIN: No rashes CENTRAL NERVOUS SYSTEM: No focal deficits, tone is normal in all 4 extremities. EXTREMITIES: There is no peripheral edema. No clubbing, no cyanosis. Peripheral pulses are intact. - Labs CBC & Chem 7: 02/23/21 13:57 02/25/21 05:47 Labs: Abnormal Lab Results - Last 24 Hours (Table) 02/25/21 02/25/21 02/26/21 Range/Units 16:19 20:38 06:00 POC Glucose (mg/dL) 189 H 189 H (75-99) mg/dL Lactate Dehydrogenase 353 H (120-246) U/L 02/26/21 02/26/21 Range/Units 07:02 11:44 POC Glucose (mg/dL) 114 H 245 H (75-99) mg/dL Lactate Dehydrogenase (120-246) U/L Assessment and Plan Assessment: 1 Acute hypoxic respiratory failure related to acute COVID-19 pneumonia, patient started with symptoms 6 days prior, and he is a good candidate for Remdesivir. He is not vaccinated against COVID-19. Remdesivir started on 02/24/2021 2 Mildly Elevated d-dimer, related to COVID-19 infection, and initial CT chest showed suboptimal opacification of the pulmonary arterial system, and scattered PEs were difficult to rule out and patient was started on heparin infusion. Subsequent CT angiogram chest shows no obvious pulmonary embolism, and there is again limitation with contrast timing living the pulmonary embolism however d- dimer is negative at 0.56 making possibility of underlying pulmonary embolism less likely 3 Hypertension 4 Hyperlipidemia 5 Diabetes mellitus type 2 Plan: The patient was seen and evaluated by Dr. Johnson Cleared for discharge from the pulmonary standpoint May require home oxygen Follow closely with his PCP I, the cosigning physician, performed a history & physical examination of the patient. Lungs sounds crackles in the posterior bases. Maintaining good O2 saturations in the 90s on 2 L/m per nasal cannula. I discussed the assessment and plan of care with my nurse practitioner, Aleah Javier. I attest to the above note as dictated by her.
--- NOTE | 2021-02-26 14:51 | P.DS ---
Providers Date of admission: 02/23/21 14:22 Expected date of discharge: 02/26/21 Attending physician: Shai Renner Consults: 02/23/21 14:22 Consult Physician Routine Consulting Provider: Oliverio Johnson Consult Reason/Comments: covid, pe? Do you want consulting provider notified?: Yes Primary care physician: [facility] Course: Chief Complaint: Short of breath This is a pleasant 65-year-old patient of Dr. Whitfield. Chronic stable medical conditions include diabetes, hypertension, obesity, hyperlipidemia. Osteoarthritis. About 7 days ago patient started feeling tired. Increased sleepiness. Chills. This Sunday went to work and he felt to became short of breath. Sunday is guarded as ordered as COVID test and came back to be posit kyle yesterday. The meantime patient become more short of breath. No headache. Loss of taste. No diarrhea. Tired. Pulse ox on room air in the ER was 88%. Admitted. Started on steroids. Nasal cannula. Patient did not take the vaccine for COVID 19. Computed tomography scan of the chest done yesterday as outpatient showed bilateral infiltrates. Due to suboptimal contrast could not rule out subsegmental embolism. Mild aortic aneurysm 4.1 cm. Admitted with bilateral COVID 19 pneumonitis, acute hypoxic respiratory failure. Started on dexamethasone, IV heparin. PE was ruled out. Doppler ultrasound to lower external negative. IV Remdesivir. February 25: Sitting up in a chair. Breathing a bit better. On 3 L nasal cannula. Has been up to the bathroom. Using incentive spirometry. February 26: Doing much better. Did walk around the room. On 2 L of nasal cannula. 94%. Care was discussed with the patient about activity incentive spirometry. We'll taper dose of steroids and use xarelto prophylactic dose.: 19 precautions. Discussion and discharge planning more than 35 minutes Consultation: Dr. Johnson from pulmonary Past medical history to include: Diabetes, hypertension, colon polyps, osteoarthritis Social history: Does not smoke or drink alcohol. 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 Family history: Thyroid cancer Physical examination: VITAL SIGNS: 97.6, 61, 18, 109/75, 93% on 2 L GENERAL: Sitting up in a chair, breathing better LUNGS: Respiratory rate increased, PSYCH: Alert and oriented x3; mood and affect normal. NEUROLOGICAL: Cranial nerves grossly intact; no facial asymmetry, moving all 4 limbs Breast exam as per pulmonary and nursing INVESTIGATIONS, reviewed in the clinical context: February 25: D-dimer 0.66 potassium 4.8 creatinine 0.96 CRP 8 Doppler ultrasound: Negative for DVT CT chest [February 24]: PE unlikely. Diffuse scattered groundglass. White count 6.5 globin 12.5 platelets 228 d-dimer 0.96 sodium 131 potassium 4.6 BUN 23 creatinine 1.01 CRP 19.5 EKG tracing personally reviewed by me-normal sinus rhythm. Rate 75 CT chest [February 23]: Bilateral infiltrates. Cannot rule out PE. Chest x-ray film personally reviewed by me-<[portable film] hyperinflation. Infiltrates. Cardiomegaly. Assessment and plan: -Bilateral COVID 19 pneumonitis, and vaccinated patient. Symptoms started 7 days prior to admission.: Improved Dexamethasone 6 mg. Supplement vitamin C vitamin D zinc. Subcu Lovenox Discharge on prednisone taper and xarelto 10 mg a day for DVT prophylaxis -Acute hypoxic respiratory failure from COVID 19 93% on 2 L -IV heparin monitoring: Discontinued Follow PTT -Pulmonary embolism unlikely. No COVID-19 is thrombogenic stage. At this point is no significant findings of PE. -Diabetes mellitus type 2 on oral hypoglycemic. Continue Glucophage.. Follow Accu-Cheks -Essential hypertension Lisinopril 20 mg twice a day Norvasc 10 mg daily at bedtime. Toprol-XL 50 mg daily at bedtime -Hyperlipidemia Lipitor 10 mg daily at bedtime -Obesity BMI 35 Weight loss measures. Disposition: Home Plan - Discharge Summary Discharge Rx Participant: No New Discharge Prescriptions: New Zinc Sulfate [Orazinc] 220 mg PO DAILY #30 cap Ascorbic Acid [Vitamin C] 500 mg PO BID #60 tab Cholecalciferol [Vitamin D3 (25 Mcg = 1000 Iu)] 25 mcg PO DAILY #30 tablet Rivaroxaban [Xarelto] 10 mg PO DAILY #30 tab predniSONE 10 mg PO DAILY #30 tab Continue Atorvastatin [Lipitor] 10 mg PO HS lisinopriL 20 mg PO BID Metoprolol Succinate (ER) [Toprol XL] 50 mg PO HS amLODIPine [Norvasc] 10 mg PO HS Colchicine 0.6 mg PO DAILY PRN PRN Reason: gout metFORMIN HCL [Glucophage] 1,000 mg PO BID Discharge Medication List Atorvastatin [Lipitor] 10 mg PO HS 06/09/20 [History] lisinopriL 20 mg PO BID 09/16/19 [History] Metoprolol Succinate (ER) [Toprol XL] 50 mg PO HS 09/17/19 [History] Colchicine 0.6 mg PO DAILY PRN 02/23/21 [History] amLODIPine [Norvasc] 10 mg PO HS 02/23/21 [History] metFORMIN HCL [Glucophage] 1,000 mg PO BID 02/23/21 [History] Ascorbic Acid [Vitamin C] 500 mg PO BID #60 tab 02/26/21 [Rx] Cholecalciferol [Vitamin D3 (25 Mcg = 1000 Iu)] 25 mcg PO DAILY #30 tablet 02/26/21 [Rx] Rivaroxaban [Xarelto] 10 mg PO DAILY #30 tab 02/26/21 [Rx] Zinc Sulfate [Orazinc] 220 mg PO DAILY #30 cap 02/26/21 [Rx] predniSONE 10 mg PO DAILY #30 tab 02/26/21 [Rx] Follow up Appointment(s)/Referral(s): Oliverio Johnson MD [STAFF PHYSICIAN] - 1 Week Kt Whitfield DO [Primary Care Provider] - 1-2 days [facility] [NON-STAFF] - As Needed (oxygen)
== END 2021-02-26 14:41 | disposition home or self-care (01) | DRG 177 ==
LOC: EC 13:15 → 4SSUR 14:22
PROVIDERS: ADMIT Hospitalist; ATTEND Hospitalist
DX: U07.1 COVID-19 (principal); J12.82 Pneumonia due to coronavirus disease 2019; J96.01 Acute respiratory failure with hypoxia; E87.1 Hypo-osmolality and hyponatremia; E11.9 Type 2 diabetes mellitus without complications; E66.9 Obesity, unspecified; E78.5 Hyperlipidemia, unspecified; K44.9 Diaphragmatic hernia without obstruction or gangrene; M19.90 Unspecified osteoarthritis, unspecified site; Z68.35 Body mass index [BMI] 35.0-35.9, adult; I71.9 Aortic aneurysm of unspecified site, without rupture; Z96.652 Presence of left artificial knee joint; Z96.641 Presence of right artificial hip joint; Z87.19 Personal history of other diseases of the digestive system; Z79.84 Long term (current) use of oral hypoglycemic drugs; Z79.899 Other long term (current) drug therapy; Z80.42 Family history of malignant neoplasm of prostate; Z80.8 Family history of malignant neoplasm of other organs or systems; Z82.5 Family history of asthma and other chronic lower respiratory diseases; I10 Essential (primary) hypertension
CPT/HCPCS: 36415; 71045; 71275; 80048; 83605; 83615; 83735; 85025; 85379; 85610; 85730; 86140; 86850; 86900; 86901; 93005; 93970; 96374; 96375; 99285

== ENCOUNTER → 2021-02-23 | Outpatient (CLI) | payer BC ==
[2021-02-23 11:44] LABS: African American GFR (CKD) >90 (>60 ml/min/1.73 sqM); Blood Urea Nitrogen 23 mg/dL (9-20); Non-African American GFR(CKD) 80 (>60 ml/min/1.73 sqM)
--- NOTE | 2021-02-23 12:54 | CT ---
EXAMINATION TYPE: CT chest angio for PE DATE OF EXAM: 02/23/2021 COMPARISON: Old radiograph 06/07/2018 HISTORY: 65-year-old male Elev. D dimer, SOB TECHNIQUE: Contiguous axial scanning of the chest performed with IV Contrast, patient injected with 1 00 mL of Isovue 370. Coronal/sagittal MIP reconstructions performed. CT DLP: 780.8 mGycm Automated exposure control for dose reduction was used. FINDINGS: The heart is borderline enlarged. No pericardial effusion. No flattening of the interventricular sept um or reflux of contrast into the hepatic veins. Aortic root mildly aneurysmal at 4.1 cm. Ascending aorta ectatic at 3.8 cm. Variant direct takeoff of the left vertebral artery directly from the aortic arch. Borderline sized 1.0 cm precarinal lymph node maintains a fatty hilum. There is a 2.1 cm right hilar lymph node 1.5 cm lower right paraesophageal lymph node, axial image 91. Suboptimal opacification pulmonary arterial system. Unable to exclude scattered PEs, for example, seg mental right upper lobe, axial images 47, segmental right middle lobe, axial image 69. No large centr al or lobar branch pulmonary embolus. Extensive bilateral patchy and confluent groundglass opacities. A couple bands of atelectasis and sca rring across the anterior right lung and also at the left base. No pleural effusion or pneumothorax. Small hiatal hernia. Bones: Advanced degenerative changes of both shoulders. Moderate degenerative disc disease mid to low er thoracic spine. [facility] in the lower thoracic spine. IMPRESSION: 1. EXAM POSITIVE FOR BILATERAL COVID PNEUMONIA. A 2.1 CM RIGHT HILAR LYMPH NODE IS LIKELY REACTIVE. 2. SUBOPTIMAL CONTRAST BOLUS. UNABLE TO EXCLUDE A COUPLE SEGMENTAL BRANCH EMBOLI IN THE RIGHT UPPER A ND RIGHT MIDDLE LOBES. 3. A 1.5 CM LOWER RIGHT PARAESOPHAGEAL LYMPH NODE MAY BE REACTIVE. THREE-MONTH FOLLOW-UP CT TO REASSE SS. 4. SMALL HIATAL HERNIA. MILD ANEURYSM AORTIC ROOT AT 4.1 CM. CRITICAL FINDINGS WILL BE CALLED TO THE PHYSICIAN'S OFFICE BY THE SUTURE WINDER HAND IMMEDIATELY FOLLOWI NG THE DICTATION.
== END | disposition home or self-care (01) ==
LOC: RADCTMAIN 10:11
PROVIDERS: ATTEND Family Medicine
DX: U07.1 COVID-19 (principal); J12.82 Pneumonia due to coronavirus disease 2019; K44.9 Diaphragmatic hernia without obstruction or gangrene; I71.2 Thoracic aortic aneurysm, without rupture
CPT/HCPCS: 82565; 84520; 71275; 36415; Q9967